=== PATIENT | male | born 1980 | race Caucasian/White ===

== ENCOUNTER 2018-05-09 12:06 | Outpatient (CLI) | payer BC, SELFPAY ==
[2018-05-09 13:43] LABS: Hemoglobin A1C 5.6 % (4.5-6.2)
[2018-05-09 13:59] LABS: Abs Immature Grans 0.01 k/cumm (0.0-0.09); Absolute Basophil Count 0.04 k/cumm (0.0-0.2); Absolute Eosinophil Count 0.27 k/cumm (0.0-0.7); Absolute Lymphocyte Count 1.62 k/cumm (1.2-3.4); Absolute Monocyte Count 0.36 k/cumm (0.11-0.7); Absolute Neutrophil Count 2.32 k/cumm (1.2-6.7); Basophils % 0.9; Eosinophils % 5.8; HGB 15.2 g/dL (13.5-17.5); Immature Grans % 0.2; Lymphocytes % 35.1; Mean Corp. HGB Concentration 35.3 g/dL (32.0-36.0); Mean Corpuscular Hemoglobin 31.5 pg (27.0-33.0); Mean Corpuscular Volume 89.2 fL (80-95); Mean Platelet Volume 10.2 fL (8.0-11.0); Monocytes % 7.8; Neutrophils % 50.2; Platelet Count 278 x1000/uL (130-400); RBC 4.82 m/cumm (4.50-6.00); White Blood Cell Count 4.62 k/cumm (4.4-10.8)
[2018-05-09 14:26] LABS: ALT 176 U/L (12-78); AST 88 U/L (15-37); Albumin 4.6 g/dL (3.4-5.0); Alkaline Phosphatase 79 U/L (46-116); Anion Gap 10.5 mmol/L (3-11); BUN 19 mg/dL (7-18); Bilirubin, Total 0.8 mg/dL (0.2-1.0); CO2 26.5 mmol/L (21.0-32.0); CREATININE 1.05 mg/dL (0.70-1.30); Calcium 9.3 mg/dL (8.5-10.1); Chloride 103 mmol/L (98-107); Glucose 98 mg/dL (70-100); Potassium 4.3 mmol/L (3.5-5.1); Sodium 140 mmol/L (136-145); TSH (W/Ref FT4) 1.05 uIU/mL (0.358-3.74); Total Protein 7.7 g/dL (6.4-8.2); Vitamin B12 576 pg/mL (193-986)
[2018-05-10 12:10] LABS: Albumin 66.3 % (55.8-66.1); Total Protein 7.5 g/dl (6.3-8.2)
== END 2018-05-09 12:26 ==
PROVIDERS: PCP Nurse Practitioner Family; Visit Provider Nurse Practitioner Family
DX: R20.2 Paresthesia of skin (principal); R20.0 Anesthesia of skin; G62.9 Polyneuropathy, unspecified
CPT/HCPCS: 36415; 80053; 82607; 83036; 84165; 84443; 85025

== ENCOUNTER 2019-07-11 00:35 | Day surgery (SDC) | payer BC, SELFPAY ==
--- NOTE | 2019-07-11 00:38 | ED.GENADUL_ITS ---
Discharge Plan Disposition Patient Disposition: OTHER Condition: Good Discharge Details Chief Complaint: Laceration Clinical Impression: Laceration of right hand, complicated Primary Care Provider: Dorys James ED Provider: Wayne Alcazar [place] Meds and New Rx's Prescriptions: No Action esomeprazole magnesium [Nexium] 20 MG capsule,delayed release(DR/EC) 20 mg PO DAILY RF: 0 clindamycin phosphate 1 % solution 1 applic Topical 1-2 times daily PRN (Reason: folliculitis) Qty: 60 RF: 3 Medical Decision Making Patient with laceration to the back of the index and long finger of the right hand. The extensor tendon of the index finger is clearly involved. He is right-hand dominant. He is also nauseated and pale. Likely vagal type reaction given his mild bradycardia. IV established and Zofran ordered. We will also dosed with Ancef. Needs TD booster. Will obtain x-ray. Will wash out and cover with wet-to-dry. Will discuss with orthopedics on timing of extensor tendon repair. 01:30 -x-ray shows an incomplete transverse fracture at the base of the proximal metaphysis of the index finger. Patient soaking the hand in Betadine/saline mixture. Will then wash out in wrap with wet-to-dry. Will make n.p.o. and obtain preop EKG. Start IV fluids and discussed with orthopedics. 03:15 - Patient was discussed with orthopedics, Dr. Florian. Patient will be held in the ED until morning at which point he will be taken to the OR for wash-out and repair. Plan discharge home after surgery. ECG Data Attestation: I personally reviewed and interpreted this ECG (s) as follows: Prior ECG tracings: not available for review Interpretation: Sinus rhythm at 75. Normal axis and intervals. Isolated Q in III. Normal ST segments. Normal EKG. HPI General Mode of arrival: ambulatory . Date/Time Provider Initiated Documentation: 07/11/19 00:38 . Limitations to Documentation: no limitations . Information obtained by: patient and RN notes reviewed . HPI Narrative: Patient presents to ED with right hand injury. Patient was doing some woodworking tonight. He is also had some vodka. He sustained a laceration from a band saw to the back of his right hand involving the index and middle finger. He is right-hand dominant. Bleeding is controlled. He has difficulty extending the index finger. He denies numbness. He has not been ill prior. There is been no fever, cough, shortness of breath. Related Data Home Medications Medication Instructions Recorded Confirmed esomeprazole magnesium [Nexium] 20 mg PO DAILY tab-cap 03/21/17 07/11/19 clindamycin phosphate 1 % topical 1 applic TOPICAL 1-2 times daily 01/22/19 07/11/19 solution PRN #60 ml Previous Rx's Medication Instructions Recorded clindamycin phosphate 1 % topical 1 applic TOPICAL 1-2 times daily 01/22/19 solution PRN #60 ml Allergies Allergy/AdvReac Type Severity Reaction Status Date / Time Penicillins Allergy Intermediate Hives Unverified 07/11/19 00:52 Review of Systems Narrative: As documented in HPI otherwise negative as below. Const: no fever, chills, weakness Resp: no cough, SOB, pleuritic pain CV: no CP, diaphoresis, edema, syncope GI: no abdominal pain, nausea, vomiting, diarrhea Neuro: no headache, numbness, focal weakness, confusion [facility] Medical History (Updated 07/11/19 @ 07:07 by Ed Florian MD) Acquired unequal limb length (Chronic 11/06/14) GERD (gastroesophageal reflux disease) (Chronic 10/01/14) Migraine without aura and without status migrainosus, not intractable (Chronic 05/11/17) Surgical History wisdom teeth extraction Social History Smoking/Tobacco Use Status: Former Tobacco Use Alcohol Intake: current Alcohol Intake frequency: 0-2 drinks per day Alcohol type: hard liquor Drug use: Never Substance use type: does not use Household members: spouse Number of Children: 2 current occupation: Teacher Current gender identity: male What type of physical activity do you participate in: regular exercise and other Details: skiing, snow shoeing Duration: > 90 minutes/day Frequency: 1-2 times per week Do you feel safe at home: Yes Do you feel safe in your relationship?: Yes Exam Narrative Exam Narrative: Vitals: Afebrile. Mildly elevated blood pressure. Otherwise normal vitals and normal room air pulse oximetry. Const: WDWN male in NAD. HEENT: NC/AT. Normal facial exam. Eyes: Normal conjunctiva and sclera. Neck: Supple. Trachea midline. Lungs: Normal respiratory effort. Neuro: A+O x 3. Normal speech, mentation, gait. Cranial nerves II - XII grossly intact. No gross motor or sensory deficit. Ext: Right index finger with deep laceration on the dorsal aspect just above the MCP joint. Finger in flexed position. Able to get to extension but extremely weak. Extensor tendon is visualized and is lacerated. Right long finger with laceration on the radial dorsal aspect. Able to fully extend and hold again re sistance. Cap refill and sensation intact distal. Skin: Lacerations as described above.
[2019-07-11 00:41] VITALS: BP 127/92; PULSE 59; RESP 16; TEMP 36.6; O2SAT 97
[2019-07-11] MEDS: Tetanus & Diphtheria Tox,ADULT 0.5 ML VIAL IM (00:59)
[2019-07-11] MEDS: Ondansetron 4 MG/2 ML VIAL IVP (01:00)
[2019-07-11] MEDS: ceFAZolin 1 GM/50 ML BAG IVPB (01:00)
--- NOTE | 2019-07-11 01:10 | DI.RAD_ITS ---
EXAM: XR HAND RT COMPLETE CLINICAL HISTORY: Trauma,saw injury TECHNIQUE: 2D digital imaging was performed. COMPARISON: No exams were available for comparison FINDINGS: BONES: Incomplete transverse fracture at the proximal metadiaphyseal junction of the proximal phalanx of the right index finger. The fracture does not appear to extend through the ulnar aspect of the c ortex of the bone. No bony destructive lesion is seen. JOINTS: No dislocation present. SOFT TISSUE: Soft tissue swelling of the index finger. No radiopaque foreign bodies are present. IMPRESSION: Incomplete transverse fracture through the proximal phalanx of the right index finger. No radiopaque foreign bodies are present. DATA REPOSITORY: RADIATION DOSE DELIVERED:
--- NOTE | 2019-07-11 01:25 | DI.VRAD_ITS ---
PROCEDURE INFORMATION: Exam: XR Right Hand Exam date and time: 07/11/2019 1:08 AM Age: 39 years old Clinical indication: Injury or trauma; Injury history: Band saw accident; Initial encounter; Laceration; Right; Index finger; Injury date: 07/11/19 TECHNIQUE: Imaging protocol: XR Right hand. Views: 3 or more views. COMPARISON: No relevant prior studies available. FINDINGS: Bones/joints: Incomplete transverse fracture at the basal metaphysis of the 2nd finger proximal phalanx. This is consistent with a band saw injury. No foreign body. Soft tissues: No soft tissue foreign body IMPRESSION: Incomplete transverse fracture at the base of the 2nd finger proximal phalanx consistent with a band saw cutting injury. This does not extend through the ulna side cortex. Dictated and Authenticated by: Myron Linn MD. Ordering:LEENA Black MD
--- NOTE | 2019-07-11 01:28 | NUR.NOTE ---
Nursing Note: Pt soaking hand in water and iodine. Tolerating well.
--- NOTE | 2019-07-11 01:55 | NUR.NOTE ---
Nursing Note: Lacerations rinsed with 50 ml of NS, wrapped with 4x4 gauze and secured with cling. Patienttolerated well.
[2019-07-11] MEDS: Lactated Ringers 1,000 ML 150 ML IV (02:05)
--- NOTE | 2019-07-11 02:38 | NUR.NOTE ---
Nursing Note: Pt laying in bed,room dark per pt request. Call light at side. IVF infusing. No c/o or requests at this time.
--- NOTE | 2019-07-11 03:42 | NUR.NOTE ---
Nursing Note: Pt laying in bed, eyes closed. Appears to be sleeping.
[2019-07-11 04:30] VITALS: BP 118/71; PULSE 77; RESP 16; O2SAT 96
[2019-07-11 07:58] VITALS: BP 110/76; PULSE 87; RESP 17; TEMP 36.7; O2SAT 97
[2019-07-11 08:44] VITALS: BP 110/76; PULSE 83; RESP 17; TEMP 36.7; O2SAT 97
--- NOTE | 2019-07-11 09:00 | OCONE_ITS ---
Date of service: 07/11/19 Time of Service: 09:00 History of Present Illness History of Present Illness Chief Complaint: Right hand lacerations Narrative: Chief Complaint: Right hand laceration HPI: 39-year-old male status post bandsaw versus right hand injury around midnight last night. Was trying to get a [employer] project going study could do it with his daughter today. Admits to significant alcohol intake and rushing contributing to injury. prior injury: No attempted treatments: Sterile dressing and antibiotics administered emergency room numbness/tingling: Denies prior imaging: X-rays done in emergency room PMH: Negative diabetes: Denies allergies: Penicillins cause hives FH: non-contributory SH: Significant regular alcohol intake for the past 20 years. Admits to it likely being too much and should be cutting back. 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 Consult Reason Right hand tendon laceration and fracture evaluation and management Assessment and Plan Assessment and plan (1) Laceration of right hand, complicated: Status: Acute Assessment and plan: 39-year-old male status post band saw injury overnight to the right hand with index finger proximal phalanx open fracture and visible complete extensor tendon laceration and long finger skin full-thickness laceration As previously done antibiotics and sterile dressing applied in the emergency department Elevation and neurovascular checks for the digit overnight Surgical management this morning as soon as OR available: Plan for examination and stress x-rays of the proximal phalanx fracture to determine whether or not it needs to be fixed with ORIF, irrigation and debridement of both wounds, extensor tendon repair, and evaluation and appropriate repair of long finger laceration The risks, benefits, and alternatives were thoroughly discussed. Patient was counseled regarding pain management, expected postoperative course, and recovery timeline. All questions were answered. Informed consent was obtained. Agree and understand treatment plan. Follow up approximately 10 days after surgery. Case discussed with emergency room physician and nurse journeyman pressman Qualifiers: Encounter type: initial encounter Qualified Code(s): S61.411A - Laceration without foreign body of right hand, initial encounter (2) Fracture of proximal phalanx of hand, open: Status: Acute Assessment and plan: as above Qualifiers: Encounter type: initial encounter Finger: index finger Fracture alignment: nondisplaced Laterality: right Qualified Code(s): S62.640B - Nondisplaced fracture of proximal phalanx of right index finger, initial encounter for open fracture Review of Systems Constitutional Constitutional: Denies chills and Denies fever(s) Eyes Eyes: Denies diplopia and Denies loss of vision ENT Ears, Nose, Mouth, and Throat: Denies dental pain and Denies other (cavities) Cardiovascular Cardiovascular: Denies chest pain with activity, Denies irregular heart rhythm and Denies dyspnea Respiratory Respiratory: Denies cough and Denies dyspnea Gastrointestinal Gastrointestinal: Denies nausea and Denies vomiting Musculoskeletal Musculoskeletal: Reports as per HPI Integumentary/Breasts Skin/Breast: Denies rash and Denies wounds Neurologic Neurologic: Reports as per HPI and Denies loss of vision Psychiatric Psychiatric: Reports anxiety and Denies depression Hematologic/Lymphatic Hematologic/Lymphatic: Denies easy bleeding and Denies easy bruising Allergic/Immunologic Allergic/Immunologic: Reports as per HPI COUNT INCLUDES THE [facility] Medical History Acquired unequal limb length (Chronic 11/06/14) GERD (gastroesophageal reflux disease) (Chronic 10/01/14) Migraine without aura and without status migrainosus, not intractable (Chronic 05/11/17) Surgical History wisdom teeth extraction Family History Mother Essential hypertension Father No problems noted. Sister No problems noted. Brother No problems noted. 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 What type of physical activity do you participate in: regular exercise and other Details: skiing, snow shoeing Duration: > 90 minutes/day Frequency: 1-2 times per week Do you feel safe at home: Yes Do you feel safe in your relationship?: Yes Exam Const General: cooperative, comfortable and no acute distress Orientation: alert, awake and not confused Limitations: mental status not altered and no language barrier HENMT Head: normocephalic and atraumatic Neck Neck: normal visual inspection and full ROM Resp Effort & Inspection: normal respiratory effort, able to speak in complete sentences, no audible wheezes and no grunting General: deferred Skin General skin exam: no rashes or lesions noted Neuro General: patient alert, patient awake and patient oriented x3 Cognition: normal cognition Speech: speech normal Extrem Other: Right hand: Dorsal index finger full-thickness laceration over the base of the proximal phalanx from the mid axial vermilion border radially to the webspace ulnarly. Obvious contamination of metal and wood particles with devitalized skin and subcutaneous tissue and tendon exposed. Brisk cap refill under nail plate. Sensation completely intact per patient radial and ulnar digital borders. Difficult to participate in tendon exam but able to demonstrate limited but intact flexion with some limited extension at the MP J but no extension of the PIPJ or DIPJ consistent with obviously visible full-thickness extensor tendon laceration down to bone. Visible bone fracture/laceration and bone fragments. No active bleeding. No purulence no drainage. Long finger with full-thickness skin laceration over the dorsal third of the digit localized over the base of the proximal phalanx with visible tendon exposed but no obvious tendon laceration. No other trauma or injury to the thumb ring or small fingers or remainder of hand 2+ radial pulse. Regular rate and rhythm. Psych Appearance: grossly normal Mental Status: mental status grossly normal Speech and Movement: speech and movement normal Affect: normal affect Attitude: cooperative Results Last Vital Signs Temp 97.9 F 07/11/19 00:41 Pulse 77 07/11/19 04:30 Resp 16 07/11/19 04:30 BP 118/71 07/11/19 04:30 Pulse Ox 96 07/11/19 04:30 Imaging Imaging Studies: Right hand x-rays report and images independently reviewed: Significant for index finger proximal phalanx base nearly complete approximately 90% fracture from the dorsal surface with no angulation or displacement
[2019-07-11] MEDS: Lactated Ringers 1,000 ML 80 ML IV (09:07)
[2019-07-11] MEDS: ceFAZolin 2 GM/50 ML BAG IVPB (09:08)
--- NOTE | 2019-07-11 09:55 | DI.RAD_ITS ---
EXAM: XR HAND RT LIMITED CLINICAL HISTORY: RIGHT HAND LACERATION TECHNIQUE: 2D and realtime digital imaging was performed. CONTRAST MATERIAL: Refer to procedure report. COMPARISON: No exams were available for comparison FINDINGS: Fluoroscopy was provided for Dr. Florian during the evaluation of an incomplete fracture of the proxim al phalanx of the index finger. Please refer to the procedure report for complete details. Fluoro time: 3.7 seconds IMPRESSION: RADIATION DOSE DELIVERED:
[2019-07-11] MEDS: Hydrogen Peroxide 3% 480 ML BTL (10:54)
[2019-07-11 11:39] VITALS: BP 132/102; PULSE 73; RESP 16; TEMP 36.8; O2SAT 98
--- NOTE | 2019-07-11 12:06 | PDOC.DSDIS_ITS ---
Discharge Plan Disposition Patient Disposition: HOME Condition: Good Discharge Details Chief Complaint: Laceration Clinical Impression: Laceration of right hand, complicated Reason For Visit: Right hand versus bandsaw Attending Provider: Ed Florian Primary Care Provider: Dorys James ED Provider: Wayne Alcazar Home Meds and New Rx's Prescriptions: New naproxen 250 mg tablet 250 - 500 mg PO BID PRN (Reason: Moderate pain or swelling) Qty: 60 RF: 0 tramadol 50 mg Tablet 50 mg PO Q8H PRN PRN (Reason: severe pain) Qty: 9 RF: 0 cephalexin 250 mg tablet 250 mg PO QID 5 Days Qty: 20 RF: 0 Continued esomeprazole magnesium [Nexium] 20 MG capsule,delayed release(DR/EC) 20 mg PO DAILY RF: 0 clindamycin phosphate 1 % solution 1 applic Topical 1-2 times daily PRN (Reason: folliculitis) Qty: 60 RF: 3 Discharge Instructions Additional Instructions: Surgery: Right hand index finger extensor tendon repair and index finger and long finger laceration repairs Activity: Nonweightbearing in splint at all times. Recommend elevation at the level of the heart to minimize swelling and discomfort. Minimize active extension of the index finger. May actively flex the index finger and extend it passively using your other hand. Should work on gentle range of motion every day to prevent stiffness. A physical therapy prescription will be provided separately in the office at follow-up if needed. Prescriptions: Keflex 250 mg take 1 tablet 4 times a day to decrease risk of infection Naproxen 250 mg take 1-2 every 12 hours with a meal as needed for moderate pain Tramadol 50 mg take 1 every 8 hours as needed for severe pain You may use [id number] Tylenol (acetaminophen) as needed for mild pain. These pain medications may be taken all at once or in different combinations as needed. Also, recommend Colace (docusate) as a stool softener as surgery and pain medicine cause constipation. Dressings: Leave splint and dressing in place until follow-up. Keep clean and dry at all times. Follow-up: Approximately [address] Florian. Please call the office Sunday to confirm an appointment. Please call the office during business hours with any questions or concerns. L et us know right away if you develop any redness, drainage, fevers, chest pain, or trouble breathing. Do not drink alcohol or drive for at least 24 hours after anesthesia. Stand Alone Forms: [facility] Post op Instructions, Armen Owens ([facility]) Referrals: Ed Florian MD [ [facility] STAFF PHYSICIAN] - Discharge Orders Discharge Orders: Discharge Order (Routine); Ordered 07/11/19 Ordered By: Ed Florian DS: Diagnosis Discharge Diagnosis (1) Laceration of right hand, complicated: Status: Acute (2) Fracture of proximal phalanx of hand, open: Status: Acute
--- NOTE | 2019-07-11 12:23 | ROE_ITS ---
Date of service: 07/11/19 Time of Service: 12:23 Operative Note Operative Note DATE OF PROCEDURE: 07/11/19 PRE-OP DIAGNOSIS: 1. Right index finger proximal phalanx base open nondisplaced fracture 2. Complex laceration right dorsal index finger 3. Complex laceration right dorsal long finger 4. Complete extensor tendon laceration right index finger POST-OP DIAGNOSIS: same PROCEDURE: 1. Irrigation and debridement skin, subcutaneous tissue, tendon, and bone right index finger wound 2. Stress radiographic exam right index finger proximal phalanx fracture showing stable fracture pattern to flexion/extension and radial/ulnar stress 3. Irrigation and debridement skin, and subcutaneous tissue right long finger wound 4. Repair right index finger extensor tendon 5. Repair right index finger laceration 6. Repair right long finger laceration 7. Closed treatment right hand index finger proximal phalanx fracture SURGEON: Ed Florian SALES AND EVENTS COORDINATOR: None None ANESTHESIA: MAC, local and other (Cathy block) ESTIMATED BLOOD LOSS: 5 PATHOLOGY: none sent COMPLICATIONS: None Patient was transported to: PACU Patient's condition: stable Implants: None Indications: Please see complete medical record for details. Findings: Contaminated wound containing devitalized skin and subcutaneous tissue, tendon, and bone fragments as well as gross contamination from wood and possibly bandsaw. Full-thickness laceration right index finger through skin, subcutaneous tissue, extensor tendon and into bone with complete extensor tendon laceration and 90% proximal phalanx base fracture that was stable on stress exam. No visible radial ulnar digital arteries or nerves. Full-thickness skin and subcutaneous tissue laceration dorsal long finger with intact extensor tendon. Procedure Description: The patient was taken to the operating room and transferred to the operating room table. Preoperative antibiotics were administered. Windthorst block and local anesthesia with 0.25% bupivacaine containing epinephrine was induced. All bony prominences were well-padded. The right hand was prepped and draped in the usual sterile fashion. The correct patient, procedure, and side of the procedure were all verified prior to incision. The dorsal index and long finger wounds were approached and grossly irrigated and bluntly removed of contaminated tissue and devitalized tissue. Forceps were used to remove devitalized and contaminated pieces of bone, wood, subcutaneous tissue, and skin on the index finger and skin and subcutaneous tissue and wood on the long finger. The wounds were copiously irrigated with a liter of normal saline and found to be clean of gross debris. Hemostasis was achieved using Bovie cautery. Fluoroscopic C arm images were obtained in neutral AP and lateral positions confirming nearly complete 90% proximal phalanx base index finger fracture with nondisplaced alignment. The fracture was stressed both the radial and ulnar direction as well as the flexion and extension directions and found to be completely stable on fluoroscopic manual stress exam. The decision was made to omit any fracture fixation. The extensor tendon proximal distal edges were cleaned to viable tissue and released from surrounding tissue to allow for appropriate repair. A modified Christiano-Yohannes technique was performed under minimal tension with the finger held in neutral position. 6 core strands of 3-0 FiberWire were used and supplemented with 2 additional core strands of 4-0 Ethibond. There was good apposition at the tendon site and the patient was able to demonstrate active flexion extension without gapping. The wound was copiously irrigated with normal saline. The index finger and long finger dorsal wounds were closed in layered fashion using 3-0 Monocryl in a buried interrupted fashion the subcutaneous tissue and 4-0 nylon in a horizontal mattress fashion for the skin. Windthorst block tourniquet was let down. Pressure was maintained over the wounds and incisions and hemostasis was achieved. The wounds were covered with Xeroform dry 4 x 4 gauze and in between the fingers and sterile soft roll. A resting volar splint was applied with the wrist in extension and metacarpophalangeal joints and 90% flexion for an appropriate intrinsic positive position to immobilize the proximal phalanx fracture as well as reduce tension on the extensor tendon repair. The patient awoke from anesthesia without complication. Patient was instructed on both active and passive range of motion restrictions and precautions and daily home exercises prevent stiffness. Transferred to recovery room in stable condition.
== END 2019-07-11 23:59 | disposition home or self-care (01) ==
LOC: ER 07:45 → DSU 12:08 → ER 13:36
PROVIDERS: Emergency Provider Emergency Medicine; PCP Nurse Practitioner Family; Visit Provider Student in an Organized Health Care Education/Training Program
PROC: 0LQ70ZZ Repair Right Hand Tendon, Open Approach (ICD-10-PCS; CPT 11012; principal; 2019-07-11 09:00)
DX: S61.210A Laceration without foreign body of right index finger without damage to nail, initial encounter (principal); S62.640B Nondisplaced fracture of proximal phalanx of right index finger, initial encounter for open fracture; S61.212A Laceration without foreign body of right middle finger without damage to nail, initial encounter; S56.421A Laceration of extensor muscle, fascia and tendon of right index finger at forearm level, initial encounter; W31.2XXA Contact with powered woodworking and forming machines, initial encounter
CPT/HCPCS: 11012; 11042; 26418; 12041; 26725; 36415; 90471; 93005; 96361; 96365; 96375; 99254; 99285; 73120; 73130; 93010; 99284; J0690; J1100; J1885; J2250; J2405

== ENCOUNTER 2019-07-22 10:29 | Outpatient (CLI) | payer BC, SELFPAY ==
--- NOTE | 2019-07-22 10:00 | DI.RAD_ITS ---
EXAM: XR FINGER RT INDEX CLINICAL HISTORY: F/U INJURY TECHNIQUE: COMPARISON: XR HAND RT COMPLETE from 07/11/2019 FINDINGS: Two views were obtained and show previously described transverse fracture of the base of the proximal phalanx of the index finger, no change in alignment comparison with examination of July 10. IMPRESSION:
== END 2019-07-22 10:49 ==
PROVIDERS: PCP Nurse Practitioner Family; Visit Provider Student in an Organized Health Care Education/Training Program
DX: S62.640D Nondisplaced fracture of proximal phalanx of right index finger, subsequent encounter for fracture with routine healing (principal)
CPT/HCPCS: 73140

== ENCOUNTER 2019-08-26 09:20 | Outpatient (CLI) | payer BC, SELFPAY ==
--- NOTE | 2019-08-26 09:02 | DI.RAD_ITS ---
EXAM: XR FINGER RT INDEX CLINICAL HISTORY: fu finger TECHNIQUE: COMPARISON: No exams were available for comparison FINDINGS: Two views were obtained and show previously described nondisplaced fracture of the proximal metaphyse al diaphyseal junction of the proximal phalanx of the index finger. No interval change in alignment in comparison with examination of July 21. IMPRESSION:
== END 2019-08-26 09:40 ==
PROVIDERS: PCP Nurse Practitioner Family; Visit Provider Student in an Organized Health Care Education/Training Program
DX: S62.640D Nondisplaced fracture of proximal phalanx of right index finger, subsequent encounter for fracture with routine healing (principal)
CPT/HCPCS: 73140

== ENCOUNTER 2019-09-03 14:19 | Outpatient (CLI) | payer OTHER, SELFPAY ==
--- NOTE | 2019-09-03 08:45 | DI.RAD_ITS ---
EXAM: XR SHOULDER RT COMPLETE 2+V CLINICAL HISTORY: SHOULDER PAIN. TECHNIQUE: 2D digital imaging was performed. COMPARISON: CR RIGHT SHOULDER COMPLETE from 04/21/2015 FINDINGS: BONES: No acute fracture is present. No bony destructive lesion is seen. JOINTS: There is elevation of the distal clavicle relative to the acromion. The patient has a histor y of a prior AC joint separation. Dystrophic ossifications are seen around the distal clavicle which appear chronic. The glenohumeral joint is well maintained. SOFT TISSUE: Normal. IMPRESSION: Disruption of the normal right acromioclavicular joint which may be chronic. An acute ACL tear canno t be excluded. Chronic appearing ossification around the acromioclavicular joint. MRI might be considered in this patient for further evaluation. DATA REPOSITORY: RADIATION DOSE DELIVERED:
== END 2019-09-03 14:39 ==
PROVIDERS: PCP Nurse Practitioner Family; Referring Provider Nurse Practitioner Family; Visit Provider Student in an Organized Health Care Education/Training Program
DX: M25.511 Pain in right shoulder (principal); M61.411 Other calcification of muscle, right shoulder; S43.101A Unspecified dislocation of right acromioclavicular joint, initial encounter
CPT/HCPCS: 73030

== ENCOUNTER 2019-09-18 02:40 | Outpatient (CLI) | payer OTHER, BC, SELFPAY ==
--- NOTE | 2019-09-18 10:50 | DI.MRI_ITS ---
EXAM: MR UPPER JOINT RT WO CLINICAL HISTORY: Chronic shoulder separation. Assess CC ligaments,s42.031a,s43.101A,CLOSED. TECHNIQUE: Multiplanar multisequence MRI was performed. COMPARISON: CR XR SHOULDER RT COMPLETE 2+V from 09/03/2019 FINDINGS: MR examination shoulder was performed according to usual protocol. Bones: There is superior displacement of the distal aspect of the clavicle consistent with acromiocla vicular separation, fibro osseous bridges are noted between the clavicle coracoid as noted films. Th ere is no supraspinatus impingement. Articular cartilage and labrum:: There appears to be thinning the articular cartilage humeral and gle noid components of the glenohumeral joint. No gross labral tear identified by noncontrast criteria. Biceps tendon: The biceps tendon and anchor appear intact. The tendon is normally positioned in the bicipital groove. Minimal signal abnormality noted in the proximal to mid biceps tendon consistent w ith mild tendinosis. Rotator cuff: Mildly abnormal Laura attachment signal supraspinatus and subscapularis tendons, no sign ificant partial or full thickness tear identified. Mildly abnormal signal in rotator interval. No d iscrete tear seen. Unremarkable appearance infraspinatus and teres minor muscle and tendons. IMPRESSION: Degenerative articular cartilage thinning of the glenohumeral joint. 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 Mild supraspinatus and subscapularis tendinosis, no focal tear seen. DATA REPOSITORY:
== END 2019-09-18 03:00 ==
PROVIDERS: PCP Nurse Practitioner Family; Visit Provider Student in an Organized Health Care Education/Training Program
DX: M24.411 Recurrent dislocation, right shoulder (principal); M75.81 Other shoulder lesions, right shoulder; M19.011 Primary osteoarthritis, right shoulder
CPT/HCPCS: 73221

== ENCOUNTER 2019-10-15 08:39 | Outpatient (CLI) | payer BC, SELFPAY ==
--- NOTE | 2019-10-15 14:45 | DI.RAD_ITS ---
EXAM: XR FINGER RT INDEX CLINICAL HISTORY: right index finger injury. TECHNIQUE: 2D digital imaging was performed. COMPARISON: CR XR FINGER RT INDEX from 08/26/2019 FINDINGS: BONES: There is no change in alignment of the nondisplaced fracture involving the proximal phalanx of the right index finger. The fracture appears to be healing. No bony destructive lesion is seen. JOINTS: No dislocation present. SOFT TISSUE: Normal. IMPRESSION: Healing fracture of the proximal phalanx of the right index finger. DATA REPOSITORY: RADIATION DOSE DELIVERED:
== END 2019-10-15 08:59 ==
PROVIDERS: PCP Nurse Practitioner Family; Visit Provider Student in an Organized Health Care Education/Training Program
DX: S62.640D Nondisplaced fracture of proximal phalanx of right index finger, subsequent encounter for fracture with routine healing (principal)
CPT/HCPCS: 73140

== ENCOUNTER 2020-02-04 15:46 | Outpatient (CLI) | payer BC, SELFPAY ==
--- NOTE | 2020-02-04 15:15 | DI.RAD_ITS ---
EXAM: XR FINGER RT INDEX INDICATION: Follow up. COMPARISON: CR XR FINGER RT INDEX from 10/15/2019 TECHNIQUE: 2D digital imaging was performed. FINDINGS: There has been continued healing at the nondisplaced fracture of the proximal phalanx of the index fi nger. No new abnormalities are seen. DATA REPOSITORY: RADIATION DOSE DELIVERED:
== END 2020-02-04 16:06 ==
PROVIDERS: PCP Nurse Practitioner Family; Referring Provider Nurse Practitioner Family; Visit Provider Student in an Organized Health Care Education/Training Program
DX: S62.640D Nondisplaced fracture of proximal phalanx of right index finger, subsequent encounter for fracture with routine healing (principal)
CPT/HCPCS: 73140

== ENCOUNTER 2021-02-08 09:20 | Outpatient (CLI) | payer BC, SELFPAY ==
--- NOTE | 2021-02-08 09:15 | RT.EKG_ITS ---
APPROVED REPORT Exam: Resting ECG Reason for Exam: chest tightness Patient Location: O HR:81 bpm ECG Measurements Heart Rate 81 AXIS DE 149 P 35 QRSd 98 QRS 88 QT 356 T 19 QTc 413 Conclusion Sinus rhythm...normal P axis, V-rate 60- 99 Normal Electrocardiogram
== END 2021-02-08 09:21 | disposition home or self-care (01) ==
LOC: DI.KIM 09:21
PROVIDERS: PCP Nurse Practitioner Family; Visit Provider Family Medicine
DX: R07.89 Other chest pain (principal)
CPT/HCPCS: 93010

== ENCOUNTER 2021-02-08 13:52 | Outpatient (RCR) | payer BC, SELFPAY ==
--- NOTE | 2021-02-08 17:00 | HOLTER_ITS ---
APPROVED REPORT Conclusion This is a 48-hour Holter monitor reportedly ordered for chest tightness Rhythm throughout was sinus with an average heart rate of 78. Minimum was 57, maximum of 112 There were no ventricular dysrhythmias A total of 3 isolated atrial premature beats were seen There was no atrial fibrillation, no high-grade AV block, no pauses greater than 3 seconds Multiple patient symptoms were reported all corresponding to sinus rhythm in the 70s
== END 2021-02-13 23:59 | disposition home or self-care (01) ==
LOC: RT 13:52
PROVIDERS: PCP Nurse Practitioner Family; Visit Provider Family Medicine
DX: F10.10 Alcohol abuse, uncomplicated (principal); R00.2 Palpitations; R07.89 Other chest pain
CPT/HCPCS: 93225; 93226

== ENCOUNTER → 2021-02-08 18:29 | Outpatient (CLI) | payer BC, SELFPAY ==
--- NOTE | 2021-02-08 10:15 | DI.RAD_ITS ---
Exam(s) XR CHEST 2V PA LATERAL EXAM: XR CHEST 2V PA LATERAL CLINICAL HISTORY: Chest tightness R07.89 CHEST PAIN TECHNIQUE: 2D digital imaging was performed. COMPARISON: CR RIGHT SHOULDER COMPLETE from 04/21/2015 FINDINGS: MEDIASTINUM: Normal. HEART: Normal. PULMONARY VASCULATURE: Normal. LUNGS: Clear. PLEURAL SPACE: No pleural effusion or pneumothorax. BONE:Calcifications beneath right clavicle likely related to prior AC separation. IMPRESSION: No acute abnormality. DATA REPOSITORY: RADIATION DOSE DELIVERED:
== END ==
PROVIDERS: PCP Nurse Practitioner Family; Visit Provider Family Medicine
DX: R07.89 Other chest pain (principal)
CPT/HCPCS: 71046

== ENCOUNTER 2021-02-11 03:32 | Outpatient (CLI) | payer BC, SELFPAY ==
[2021-02-11 09:12] LABS: Hemoglobin A1C 5.1 % (<5.7)
[2021-02-11 09:46] LABS: ALT 83 U/L (16-63); AST 46 U/L (15-37); Albumin 4.6 g/dL (3.4-5.0); Alkaline Phosphatase 82 U/L (46-116); Anion Gap 7.7 mmol/L (3-11); BUN 22 mg/dL (7-18); CO2 29.3 mmol/L (21.0-32.0); CREATININE 1.1 mg/dL (0.70-1.30); Calcium 9.3 mg/dL (8.5-10.1); Calculated LDL 143 mg/dL (<100); Chloride 104 mmol/L (98-107); Cholesterol 222 mg/dL (<200); Glucose 102 mg/dL (74-106); HDL Cholesterol 54 mg/dL (40-60); Potassium 4.7 mmol/L (3.5-5.1); Sodium 141 mmol/L (136-145); TSH (W/Ref FT4) 0.78 uIU/mL (0.36-3.74); Total Protein 7.6 g/dL (6.4-8.2); Triglyceride 127 mg/dL (<150)
[2021-02-14 11:32] LABS: Hepatitis C Ab w Rflx HCV PCR Negative (Negative)
[2021-02-14 11:52] LABS: HIV-1/2 Ag & Ab Screen Negative (Negative)
== END 2021-02-11 03:33 | disposition home or self-care (01) ==
LOC: LBO 03:32
PROVIDERS: PCP Nurse Practitioner Family; Visit Provider Nurse Practitioner Family
DX: Z13.220 Encounter for screening for lipoid disorders; R00.2 Palpitations; Z13.1 Encounter for screening for diabetes mellitus; Z11.4 Encounter for screening for human immunodeficiency virus [HIV]; Z11.59 Encounter for screening for other viral diseases
CPT/HCPCS: 36415; 80053; 80061; 86803; 87389; 83036; 84443

== ENCOUNTER 2021-06-15 01:55 | Outpatient (CLI) | payer BC, SELFPAY ==
[2021-06-15 17:23] LABS: Abs Immature Grans 0.02 10^3/uL (0.0-0.06); Absolute Basophil Count 0.04 10^3/uL (0.0-0.2); Absolute Eosinophil Count 0.25 10^3/uL (0.0-0.7); Absolute Lymphocyte Count 1.67 10^3/uL (1.2-3.4); Absolute Monocyte Count 0.34 10^3/uL (0.1-0.8); Absolute Neutrophil Count 2.62 10^3/uL (1.2-6.7); Basophils % 0.8; Eosinophils % 5.1; HCT 44.6 % (40.0-50.0); HGB 15.4 g/dL (13.5-17.5); Immature Grans % 0.4; Lymphocytes % 33.8; MCHC 34.5 % (32.0-36.0); MCV 89.7 fL (80-95); MPV 9.8 fL (8.0-11.0); Monocytes % 6.9; Nucleated RBC 0 %; Platelet Count 275 10^3/uL (130-400); RBC 4.97 10^6/uL (4.36-5.78); RDW 11.5 % (11.8-14.1); RDW-SD 37.8 fL; WBC 4.94 10^3/uL (4.4-10.8)
[2021-06-15 18:38] LABS: Iron 137 ug/dL (65-175); Total Iron Binding Capacity 345 ug/dL (250-450); Transferrin Sat 40 % (20-55)
[2021-06-15 19:33] LABS: ALT 70 U/L (16-63); AST 41 U/L (15-37); Albumin 4.7 g/dL (3.4-5.0); Alkaline Phosphatase 93 U/L (46-116); Bilirubin, Total 0.7 mg/dL (0.2-1.0); Ferritin 244 ng/mL (26-388); Total Protein 7.8 g/dL (6.4-8.2)
[2021-06-15 19:43] LABS: Bilirubin, Direct 0.2 mg/dL (0.0-0.2)
[2021-06-17 09:17] LABS: Hepatitis B Surface Ag Negative (Negative)
[2021-06-17 09:33] LABS: HBs Antibody, Quant <3.1 mIU/mL (See Note); Hepatitis B Surface Ab Negative (See Note)
[2021-06-17 09:57] LABS: Hepatitis C Ab w Rflx HCV PCR Negative (Negative)
[2021-06-17 10:41] LABS: Hep B Core Antibody Negative (Negative)
[2021-06-17 10:45] LABS: Hep A Total Ab w Rflx IgM Negative (Negative)
== END 2021-06-15 01:56 | disposition home or self-care (01) ==
LOC: LBO 01:55
PROVIDERS: PCP Nurse Practitioner Family; Visit Provider Nurse Practitioner Family
DX: R79.89 Other specified abnormal findings of blood chemistry (principal); Z11.59 Encounter for screening for other viral diseases; K76.0 Fatty (change of) liver, not elsewhere classified
CPT/HCPCS: 36415; 80076; 86704; 86706; 86709; 86803; 87340; 82728; 83540; 83550; 85025

== ENCOUNTER 2022-01-06 00:58 | Outpatient (CLI) | payer BC, SELFPAY ==
[2022-01-06 07:23] LABS: Abs Immature Grans 0.02 10^3/uL (0.0-0.06); Absolute Basophil Count 0.06 10^3/uL (0.0-0.2); Absolute Monocyte Count 0.45 10^3/uL (0.1-0.8); Basophils % 1.2; Eosinophils % 8.1; HCT 44.8 % (40.0-50.0); HGB 15.5 g/dL (13.5-17.5); Immature Grans % 0.4; Lymphocytes % 40.6; MCH 31.2 pg (27.0-33.0); MCHC 34.6 % (32.0-36.0); MCV 90 fL (80-95); MPV 9.6 fL (8.0-11.0); Monocytes % 9.1; Neutrophils % 40.6; Platelet Count 256 10^3/uL (130-400); RBC 4.97 10^6/uL (4.36-5.78); RDW 11.3 % (11.8-14.1); RDW-SD 37.4 fL; WBC 4.93 10^3/uL (4.4-10.8)
[2022-01-06 08:30] LABS: ALT 65 U/L (16-63); AST 36 U/L (15-37); Albumin 4.4 g/dL (3.4-5.0); Alkaline Phosphatase 83 U/L (46-116); Anion Gap 7.5 mmol/L (3-11); BUN 18 mg/dL (7-18); Bilirubin, Total 0.5 mg/dL (0.2-1.0); CO2 28.5 mmol/L (21.0-32.0); CREATININE 1.2 mg/dL (0.70-1.30); Calcium 8.9 mg/dL (8.5-10.1); Calculated LDL 107 mg/dL (<100); Chloride 106 mmol/L (98-107); Cholesterol 171 mg/dL (<200); Glucose 102 mg/dL (74-106); HDL Cholesterol 46 mg/dL (40-60); Potassium 4.1 mmol/L (3.5-5.1); Sodium 142 mmol/L (136-145); Total Protein 7.7 g/dL (6.4-8.2); Triglyceride 94 mg/dL (<150)
== END 2022-01-06 00:59 | disposition home or self-care (01) ==
LOC: LBO 00:58
PROVIDERS: PCP Nurse Practitioner Family; Visit Provider Nurse Practitioner Family
DX: E78.5 Hyperlipidemia, unspecified (principal); K76.0 Fatty (change of) liver, not elsewhere classified; Z13.1 Encounter for screening for diabetes mellitus
CPT/HCPCS: 36415; 80053; 80061; 85025

== ENCOUNTER 2022-12-28 02:20 | Outpatient (CLI) | payer BC, SELFPAY ==
[2022-12-28 10:30] LABS: Abs Immature Grans 0.01 10^3/uL (0.0-0.06); Absolute Basophil Count 0.05 10^3/uL (0.0-0.2); Absolute Lymphocyte Count 1.72 10^3/uL (1.2-3.4); Absolute Monocyte Count 0.42 10^3/uL (0.1-0.8); Absolute Neutrophil Count 2.33 10^3/uL (1.2-6.7); Eosinophils % 8.1; HCT 44.5 % (40.0-50.0); HGB 15.6 g/dL (13.5-17.5); Immature Grans % 0.2; Lymphocytes % 34.9; MCH 30.8 pg (27.0-33.0); MCHC 35.1 % (32.0-36.0); MCV 88 fL (80-95); MPV 10.1 fL (8.0-11.0); Monocytes % 8.5; Neutrophils % 47.3; Platelet Count 283 10^3/uL (130-400); RBC 5.07 10^6/uL (4.36-5.78); WBC 4.93 10^3/uL (4.4-10.8)
[2022-12-28 10:58] LABS: ALT 61 U/L (16-63); AST 40 U/L (15-37); Albumin 4.5 g/dL (3.4-5.0); Alkaline Phosphatase 78 U/L (46-116); Anion Gap 6.1 mmol/L (3-11); BUN 19 mg/dL (7-18); Bilirubin, Total 0.8 mg/dL (0.2-1.0); CO2 28.9 mmol/L (21.0-32.0); CREATININE 1.2 mg/dL (0.70-1.30); Calcium 9.2 mg/dL (8.5-10.1); Chloride 105 mmol/L (98-107); Estimated GFR 77.92 (mL/min/1.73m2); Glucose 102 mg/dL (74-106); Potassium 4.3 mmol/L (3.5-5.1); Sodium 140 mmol/L (136-145); Total Protein 7.5 g/dL (6.4-8.2)
== END 2022-12-28 02:21 | disposition home or self-care (01) ==
LOC: LBO 02:20
PROVIDERS: PCP Nurse Practitioner Family; Referring Provider Nurse Practitioner Family; Visit Provider Nurse Practitioner Family
DX: K76.0 Fatty (change of) liver, not elsewhere classified (principal); E78.5 Hyperlipidemia, unspecified; F10.10 Alcohol abuse, uncomplicated
CPT/HCPCS: 36415; 80053; 85025

== ENCOUNTER 2024-02-21 15:13 | Outpatient (CLI) | payer BC, SELFPAY ==
--- NOTE | 2024-02-21 08:45 | DI.RAD_ITS ---
Exam(s) XR HIP RT COMPLETE AP PELVIS EXAM: XR HIP RT COMPLETE AP PELVIS CLINICAL HISTORY: R hip pain. TECHNIQUE: 2D digital imaging was performed of the right hip. Two images were obtained. AP pelvis a nd lateral right hip views were obtained. COMPARISON: No exams were available for comparison FINDINGS: BONES: No acute fracture is present. No bony destructive lesion is seen. JOINTS: No dislocation present. The right hip is fairly well maintained. There may be mild narrowing of the superior joint space. SOFT TISSUE: Normal. IMPRESSION: No acute abnormality. DATA REPOSITORY: RADIATION DOSE DELIVERED:
== END 2024-02-21 15:14 | disposition home or self-care (01) ==
LOC: DIORS 15:13
PROVIDERS: PCP Nurse Practitioner Adult Health; Visit Provider Physician Assistant
DX: M25.551 Pain in right hip (principal)
CPT/HCPCS: 73502

== ENCOUNTER 2024-03-18 01:08 | Outpatient (CLI) | payer BC, SELFPAY ==
--- NOTE | 2024-03-18 08:00 | DI.MRI_ITS ---
Exam(s) MR LOWER JOINT RT WO EXAM: MR LOWER JOINT RT WO CLINICAL HISTORY: PAIN,femoral acetabular impingement,m25.859 TECHNIQUE: Multiplanar multisequence MRI was performed without intravenous contrast. COMPARISON: CR XR HIP RT COMPLETE AP PELVIS from 02/21/2024 FINDINGS: BONES/JOINTS: No fracture or contusion pattern. Mild hyperintense signal is seen on the sacral side o f the sacroiliac joints bilaterally. The sacroiliac joints are otherwise unremarkable. No findings to suggest insufficiency fracture. There is mild hyperintense signal seen in the roof of the right a cetabulum. Marrow signal is otherwise within normal limits. No evidence of avascular necrosis. The re is mild prominence of the right acetabulum. MUSCULOTENDINOUS STRUCTURES: The muscles show normal signal and size. There is mild increased signal seen in the right gluteus medius tendon at its insertion site onto the greater trochanter. SOFT TISSUES: Unremarkable. OTHER FINDINGS: None. IMPRESSION: 1. Mild prominence of the right acetabulum. 2. Mild increased signal seen within the right gluteus medius tendon suspicious for tendinosis/partia l tear. No evidence of a full-thickness tear seen. 3. Mild increased marrow signal seen on the sacral side of the sacroiliac joints. The abnormal signa l does not extend into the sacroiliac joints are along the iliac portion. Sacroiliitis is considered less likely. No findings to suggest insufficiency fracture. DATA REPOSITORY:
== END 2024-03-18 01:28 ==
LOC: DI 01:08
PROVIDERS: PCP Nurse Practitioner Adult Health; Visit Provider Student in an Organized Health Care Education/Training Program
DX: M25.851 Other specified joint disorders, right hip (principal)
CPT/HCPCS: 73721

== ENCOUNTER 2024-04-27 17:15 | Emergency (ER) | payer BC, SELFPAY ==
[2024-04-27 17:19] VITALS: BP 127/60; PULSE 88; RESP 20; TEMP 37; O2SAT 98
--- NOTE | 2024-04-27 17:35 | W.ED.GENAD ---
Discharge Plan Disposition Patient Disposition: Home Discharge Details Clinical Impression: Pain of right knee after injury Primary Care Provider: Kimberly Gaffney ED Provider: Johana Elias Home Meds and New Rx's Prescriptions: No Action tirzepatide 2.5 mg/0.5 mL pen injector 2.5 mg subcut QWEEK MDD 2.5 mg 28 Days Qty: 2 12RF Rx Instructions: Inject 2.5 mg subcutaneously once weekly as directed. sumatriptan succinate 50 mg tablet 50 mg PO ONCE MDD 200 PRN (Reason: migraine headache) Qty: 14 0RF Rx Instructions: Take 50 mg. If no response in 2 hrs, take 2nd 50 mg dose. Do not exceed 200 mg/day or 4 days/month clindamycin phosphate 1 % solution 1 applic Topical 1-2 times daily PRN (Reason: folliculitis) Qty: 60 12RF esomeprazole magnesium [Nexium] 20 MG capsule,delayed release(DR/EC) 20 mg PO DAILY fluticasone propionate [Flonase Allergy Relief] 50 mcg/actuation spray,suspension 1 spray intranasal BID PRN (Reason: allergy symptoms) Rx Instructions: administer into each nostril cetirizine [Zyrtec] 10 mg tablet 10 mg PO DAILY Discharge Instructions Instructions: Knee Pain ED Additional Instructions: Please follow-up with orthopedics within the next week or two for reassessment and management of your knee pain. There was no sign of fracture on x-ray, this is most likely soft tissue/ligamentous injury. Use the knee brace as needed for discomfort/stability. Advance weightbearing as tolerated, using crutches as needed. Elevate knee above heart level and apply ice for 10 to 15 minutes at a time every couple hours. You may use ibuprofen 600 mg every 8 hours as needed for discomfort. I recommend abstaining from alcohol while you are taking Tylenol and ibuprofen Return to emergency care if you develop new numbness to your leg, fevers associated knee pain, or if you are very worried and need to be rechecked in Referrals: [facility] [Provider Group] HPI General Date/Time Provider Initiated Documentation: 04/27/24 17:24. HPI Narrative: Prabhjot is a 44year old male who presents to the emergency department today for evaluation of right knee pain. He reports that he was skiing and caught some power today, causing him to twist his skin. He felt a crack and was unable to weight-bear due to instability in the knee. He is currently walking using a walking stick, is unable to bear weight. Denies swelling, point tenderness, distal numbness/tingling, other injuries. No previous injury to this knee.. Past medical history is significant for GERD, EtOH use, HLD, migraine. Physical exam reassuring. No obvious swelling, skin tears, ecchymosis, lacerations, or deformity to R knee. No point tenderness to palpation. Pain is elicited with weightbearing and anterior drawer test, no obvious joint laxity noted. No distal numbness/tingling, distal pulses intact, no extremity pallor. D/dx includes but is not limited to: Ligamentous injury, meniscal tear, sprain, fracture I independently interpreted the following tests: Right knee x-ray unremarkable other than joint effusion, this was confirmed by radiologist. While in the emergency department, Prabhjot received a brace and crutches for comfort. Reviewed discharge instructions with patient, including symptomatic management, orthopedic follow-up, and red flags indicating need for return to emergency care Related Data Home Medications ?Medication ?Instructions ?Recorded ?Confirmed esomeprazole magnesium 20 mg 20 mg PO DAILY 03/21/17 04/27/24 capsule,delayed release (Nexium) fluticasone propionate 50 1 spray intranasal BID PRN allergy 01/07/20 04/27/24 mcg/actuation nasal symptoms spray,suspension (Flonase Allergy Relief) cetirizine 10 mg tablet (Zyrtec) 10 mg PO DAILY 01/08/20 04/27/24 clindamycin phosphate 1 % topical 1 applic topical 1-2 times daily 02/25/24 04/27/24 solution PRN folliculitis #60 mL sumatriptan succinate 50 mg tablet 50 mg PO ONCE PRN migraine 03/31/24 04/27/24 headache #14 tab-caps tirzepatide 2.5 mg/0.5 mL 2.5 mg (0.5 mL) subcut QWEEK 28 03/31/24 04/27/24 subcutaneous pen injector days #2 mL Previous Rx's ?Medication ?Instructions ?Recorded clindamycin phosphate 1 % topical 1 applic topical 1-2 times daily 02/25/24 solution PRN folliculitis #60 mL sumatriptan succinate 50 mg tablet 50 mg PO ONCE PRN migraine 03/31/24 headache #14 tab-caps tirzepatide 2.5 mg/0.5 mL 2.5 mg (0.5 mL) subcut QWEEK 28 03/31/24 subcutaneous pen injector days #2 mL Allergies Allergy/AdvReac Type Severity Reaction Status Date / Time Penicillins Allergy Intermediate Hives Verified 04/27/24 17:21 General Stated Complaint: Orthopedic MEHNAZ: 4 Review of Systems Narrative: See HPI Exam Const General: cooperative, healthy appearing, comfortable, no acute distress, well developed and well groomed Nutritional Appearance: well nourished Orientation: alert and oriented x3 Resp Effort & Inspection: normal respiratory effort and able to speak in complete sentences Skin General skin exam: no rashes or lesions noted Trauma: no lacerations or abrasions Neuro General: patient alert, patient oriented x3, tone normal, moves all extremities and no focal motor deficits Motor: muscle tone normal throughout and strength 5/5 throughout Sensory Exam: no sensory deficits noted Extrem Right lower extremity: normal to inspection, full ROM, normal capillary refill and knee Details: normal to inspection, normal ROM and knee ligament exam normal (Pain elicited with anterior and posterior drawer test, no obvious laxity); no tenderness, no swelling, no abrasions, no ecchymosis, no crepitus, no penetrating wound, no deformity and no unusual warmth; no edema Course Vital Signs Vital signs: Vital Signs Temperature 37.0 C 04/27/24 17:19 Pulse 88 04/27/24 17:19 Respiratory Rate 20 04/27/24 17:19 Blood Pressure 127/60 04/27/24 17:19 Pulse Oximetry 98 04/27/24 17:19 Temperature 37.0 C 04/27/24 17:19 Pulse 88 04/27/24 17:19 Respiratory Rate 20 04/27/24 17:19 Blood Pressure 127/60 04/27/24 17:19 Pulse Oximetry 98 04/27/24 17:19 Pain Level 6 04/27/24 17:19 Medical Decision Making Imaging Data Radiologic Study: Radiologist's impression: PROCEDURE INFORMATION: Exam: XR Left Knee Exam date and time: 04/27/2024 5:51 PM Age: 44 years old Clinical indication: Injury or trauma; Other: RT knee pain S/P twisting injury skiing TECHNIQUE: Imaging protocol: Radiologic exam of the left knee. Views: 4 or more views. COMPARISON: No relevant prior studies available. FINDINGS: Bones/joints: Joint effusion. Bone density appropriate. Alignment is anatomic. No evidence for fracture. Soft tissues: Normal. IMPRESSION: Joint effusion. Quality:SDOH Health Related Social Needs: No Data to Display PFSH All Active Problems (Updated 04/27/24 @ 18:47 by Johana Ray) Pain of right knee after injury (Acute) Femoral acetabular impingement (Acute) RIGHT Folliculitis (Chronic) Hepatic steatosis (Chronic) 12/2021 FIB-4 score = 0.72 (cirrhosis less likely) Hyperlipidemia, unspecified (Chronic) 12/2021 labs: 10-year ASCVD risk = ~0.8% Elevated LFTs (Acute) Heavy alcohol consumption (Acute) Obesity (Chronic) Lateral femoral cutaneous entrapment syndrome (Chronic) Left Carpal tunnel syndrome of left wrist (Chronic) Acquired unequal limb length (Chronic 11/06/14) GERD (gastroesophageal reflux disease) (Chronic 10/01/14) Metatarsalgia (Chronic 11/03/14) Migraine without aura and without status migrainosus, not intractable (Chronic 05/11/17) Medical History (Updated 04/27/24 @ 18:47 by Johana Ray) Allergic rhinitis, seasonal Sensation of fullness in left ear Closed right clavicular fracture (~04/2015) Separation of right acromioclavicular joint (~04/2015) Fracture of proximal phalanx of hand, open (07/11/19) Surgical History Status post wisdom tooth extraction Family History Mother Essential hypertension Sister Cancer Lung (non-smoker) Father , Esophageal cancer Cancer Other Arthritis Social History Smoking/Tobacco Use Status: Never Smoking risk assessment performed?: Yes Alcohol Intake: current Alcohol Intake frequency: 3 or more drinks per day Alcohol type: hard liquor Drug use: Never Substance use type: does not use Adopted: No Caregiver/Support person: No Foster care: No Household members: children Housing: house Number of Children: 2 Communication Needs: None Education Level: master's degree Do you need help understanding health information?: Rarely current occupation: Teacher Pets and animals: Yes Pets and animals: cat(s) and dog(s) Sexually active: No Do you think of yourself as: straight/heterosexual Current gender identity: male What is your relationship status?: How often do you talk on the phone with friends or family?: once per week How often do you get together with friends or relatives?: once per week How often do you attend yazdanism or mormonism services?: decline to answer Do you belong to any clubs or organized social groups?: no Panel score (0-1 are the most socially isolated patients): 0 What type of physical activity do you participate in: aerobic, regular exercise and other Details: skiing, snow shoeing Duration: 60-90 minutes/day Frequency: 3-4 times per week Special jose needs: No Seatbelt use: always Helmet use: Yes Helmet use: always Drive intox or ride w/intox driver supervisor: No Do you feel safe at home: Yes Do you feel safe in your relationship?: Yes
--- NOTE | 2024-04-27 17:45 | DI.RAD_ITS ---
Exam(s) XR KNEE RT 4V AP,LAT,MADHAVI,PAT EXAM: XR KNEE RT 4V AP,LAT,MADHAVI,PAT CLINICAL HISTORY: RT knee pain s/p twisting injury skiing. TECHNIQUE: 2D digital imaging was performed. Three views. COMPARISON: No exams were available for comparison FINDINGS: BONES: No acute fracture is present. No bony destructive lesion is seen. JOINTS: The knee is normally aligned. A small joint effusion is seen. The joint spaces are maintain ed. SOFT TISSUE: Normal. IMPRESSION: Joint effusion. No evidence of fracture. DATA REPOSITORY: RADIATION DOSE DELIVERED:
--- NOTE | 2024-04-27 19:25 | DI.VRAD_ITS ---
PROCEDURE INFORMATION: Exam: XR Left Knee Exam date and time: 04/27/2024 5:51 PM Age: 44 years old Clinical indication: Injury or trauma; Other: RT knee pain S/P twisting injury skiing TECHNIQUE: Imaging protocol: Radiologic exam of the left knee. Views: 4 or more views. COMPARISON: No relevant prior studies available. FINDINGS: Bones/joints: Joint effusion. Bone density appropriate. Alignment is anatomic. No evidence for fracture. Soft tissues: Normal. IMPRESSION: Joint effusion. Dictated and Authenticated by: Rocio Griffith MD. Ordering:MADY Vaughn MD
[2024-04-27 19:42] VITALS: BP 122/62; PULSE 80; RESP 16; O2SAT 98
== END 2024-04-27 19:43 | disposition home or self-care (01) ==
PROVIDERS: Emergency Provider Nurse Practitioner Family; PCP Nurse Practitioner Adult Health
DX: M25.561 Pain in right knee (principal); M25.461 Effusion, right knee; X50.1XXA Overexertion from prolonged static or awkward postures, initial encounter; Y93.23 Activity, snow (alpine) (downhill) skiing, snowboarding, sledding, tobogganing and snow tubing; Y92.838 Other recreation area as the place of occurrence of the external cause
CPT/HCPCS: 99283; 73564

== ENCOUNTER 2024-06-13 00:24 | Outpatient (CLI) | payer BC, SELFPAY ==
--- NOTE | 2024-06-13 06:15 | DI.MRI_ITS ---
Exam(s) MR LOWER JOINT RT WO EXAM: MR LOWER JOINT RT WO CLINICAL HISTORY: PAIN,INTERNAL DERANGEMENT RT KNEE, M23.91. TECHNIQUE: Multiplanar multisequence MRI was performed. COMPARISON: CR,XR XR KNEE RT 4V AP,LAT,MADHAVI,PAT from 04/27/2024 FINDINGS: BONES: No discrete fracture. Mild edema in the lateral femoral condyle and lateral tibial plateau co nsistent with bone contusions. JOINTS: A moderate-sized joint effusion is present. Articular cartilage: Patellofemoral joint: Articular cartilage is unremarkable. Medial femoral tibial joint: Articular cartilage is unremarkable. Lateral femoral tibial joint: Articular cartilage is unremarkable. LIGAMENTS/TENDONS: Anterior Cruciate: Marked irregularity consistent with full-thickness tear. Posterior Cruciate: Unremarkable. Medial Collateral:Mild amount of surrounding fluid. Lateral Collateral ligament complex: Femoral attachment is indistinct, suspicious for sprain. Extensor mechanism: Unremarkable. Medial retinaculum: Unremarkable. Lateral retinaculum: Unremarkable. Popliteus: Unremarkable. MENISCI: The medial meniscus is unremarkable. The lateral meniscus shows some irregular fraying posteriorly and some adjacent fluid. MUSCLES: Unremarkable. SOFT TISSUES: Mild anterior edema. Tiny Maldonado's cyst. IMPRESSION: Full-thickness tear of the anterior cruciate ligament. Sprain of the lateral collateral ligament near the femoral attachment. Question mild sprain of media l collateral ligament. Irregular fraying at the posterior horn of the lateral meniscus. Moderate-sized joint effusion. Mild contusions of the lateral femoral condyle lateral tibial plateau. DATA REPOSITORY:
== END 2024-06-13 00:44 ==
PROVIDERS: PCP Nurse Practitioner Adult Health; Visit Provider Student in an Organized Health Care Education/Training Program
DX: S83.511A Sprain of anterior cruciate ligament of right knee, initial encounter (principal); X58.XXXA Exposure to other specified factors, initial encounter
CPT/HCPCS: 73721

== ENCOUNTER 2024-08-15 07:40 | Day surgery (SDC) | payer BC, SELFPAY ==
[2024-08-15] VITALS (18 sets, daily range): BP systolic 102–124; BP diastolic 63–88; PULSE 61–85; RESP 14–30; TEMP 36.1–36.6; O2SAT 92–98; BMI 29.9
--- NOTE | 2024-08-15 07:10 | PDOC.DSDIS_ITS ---
Date of service: 08/15/24 Discharge Plan Disposition Patient Disposition: Home Condition: Stable Discharge Details Attending Provider: Ed Florian Primary Care Provider: Kimberly Gaffney Home Meds and New Rx's Prescriptions: New aspirin 81 mg capsule 81 mg PO DAILY 14 Days Qty: 14 0RF naproxen 250 mg tablet 250 - 500 mg PO BID PRN (Reason: moderate pain and swelling) Qty: 40 0RF tramadol 50 mg tablet 50 mg PO Q8H PRN (Reason: severe pain) Qty: 9 0RF Continued tirzepatide (weight loss) 5 mg/0.5 mL pen injector 5 mg subcut QWEEK 28 Days Qty: 2 12RF Rx Instructions: Inject tirzepatide 5 mg subcutaneously once weekly. sumatriptan succinate 50 mg tablet 50 mg PO ONCE MDD 200 PRN (Reason: migraine headache) Qty: 14 0RF Rx Instructions: Take 50 mg. If no response in 2 hrs, take 2nd 50 mg dose. Do not exceed 200 mg/day or 4 days/month clindamycin phosphate 1 % solution 1 applic Topical 1-2 times daily PRN (Reason: folliculitis) Qty: 60 12RF esomeprazole magnesium [Nexium] 20 MG capsule,delayed release(DR/EC) 20 mg PO DAILY fluticasone propionate [Flonase Allergy Relief] 50 mcg/actuation spray,suspension 1 spray intranasal BID PRN (Reason: allergy symptoms) Rx Instructions: administer into each nostril cetirizine [Zyrtec] 10 mg tablet 10 mg PO DAILY Discharge Instructions Additional Instructions: Surgery: Right knee arthroscopy with ACL reconstruction (allograft), partial lateral meniscectomy, and patellar chondroplasty 08/15/24 Activity: Weightbearing as tolerated. No brace or crutches needed as soon as comfortable and stable on knee. Restore full knee extension as soon as possible. Perform early quad sets/quadriceps isometrics. Gradually increase flexion to full. Recommend elevation to minimize swelling discomfort. Encourage ankle pumps and wiggle toes to improve circulation. A physical therapy prescription will be sent electronically to begin in about 3 weeks. Avoid sports activities for 9+ months. Prescriptions: Aspirin 81 mg take 1 daily to prevent a blood clot for 14 days, starting tomorrow Naproxen 250 mg take 1-2 every 12 hours with a meal as needed for moderate pain Tramadol 50 mg take 1 every 8 hours as needed for severe pain You may use szuh-fru-vnmgaey Tylenol (acetaminophen) as needed for mild pain. These pain medications may be taken all at once or in different combinations as needed. Also, recommend Colace (docusate) as a stool softener as surgery and pain medicine cause constipation. You may try biwk-wry-usagree diphenhydramine (Benadryl) 25-50 mg nightly as a sleep aid Dressings: Loosen/adjust SHIMON bandage for comfort. Leave dressing in place for 3 days. May then remove and leave open to air or cover incisions with Band-Aids. Leave the sticky Steri-Strips in place until they fall off or remove them after you shower. May shower after 5 days. Follow-up: 10-[address] Florian You may take off the leg compression stockings this evening at home. You may also leave them on a few days longer if you have a history of leg swelling or edema. Let us know right away if you develop any redness, drainage, fevers, chest pain, or trouble breathing. Do not drink alcohol or drive for at least 24 hours after anesthesia. Please call the office during business hours with any questions or concerns. Stand Alone Forms: Anesthesia Discharge Inst., [facility].Nerve Block Instructions, Crutch Training Instructions, Armen Owens ([facility]) Referrals: Ed Florian MD [ [facility] STAFF PHYSICIAN] - 08/27/24 9:45 am Discharge Orders Discharge Orders: Discharge Order (Routine); Ordered 08/15/24 Ordered By: Morelia Sam DS: Diagnosis Discharge Diagnosis (1) Right ACL tear: Status: Acute (2) Tear of lateral meniscus of right knee: Status: Acute (3) Chondromalacia patellae of right knee: Status: Acute
--- NOTE | 2024-08-15 07:18 | ROE_ITS ---
Operative Note Operative Note PRE-OP DIAGNOSIS: Right knee: 1. ACL rupture 2. Possible lateral meniscus tear Right knee: 1. ACL rupture 2. Lateral meniscus tear 3. Chondromalacia patella PROCEDURE: Right knee: 1. ACL reconstruction, CPT #94733: Quadriceps allograft 2. Partial lateral meniscectomy, CPT #48049 3. Chondroplasty, CPT #56762 SURGEON: Ed Florian TRANSPORTATION MAINTENANCE OPERATOR: Morelia Sam ANESTHESIA TYPE: Local By Surgeon, General LMA/ETT and Primary Nerve Block Refer to Anesthesia Record ESTIMATED BLOOD LOSS: 10 TOURNIQUET TIME: 0 COMPLICATIONS: None Patient was transported to: PACU Patient's condition: stable Implants: Arthrex ACL TightRope II RT and ABS with 8x12 mm cortical button QuadLink pre-sutured quadriceps allograft: 10 x68 mm Indications: Please see complete medical record for details. Findings: Exam under anesthesia: Full range of motion, moderately significant quadriceps a trophy, stable varus valgus, positive pivot glide, interesting Imani exam with solid endpoint after definitively increased translation. Equivocal anterior drawer. Arthroscopic findings: Mild suprapatellar synovitis. Moderate undersurface patellar chondromalacia small central area corresponding to MRI cartilage cleft/tear. Intact medial meniscus medial compartment cartilage. High-grade ACL disruption with largely empty wall sign and moderately large tibial remnant. There was a small strand maybe 10% still attached or scarred shallow to the lateral femoral condyle, which likely created the unusual instability testing. PCL intact. Lateral compartment intact. Lateral meniscus largely intact with small superior leaflet partial-thickness tear does not probe into the meniscus substance or through to the inferior leaflet, which looked like it might have been injured but well-healed. Procedure Description: In the operating room, general anesthesia was induced. The patient was positioned supine on the operating room table. All bony prominences were well- padded. Preoperative antibiotics were administered. The knee was prepped and draped in the usual sterile fashion. The correct patient, procedure, and side of the procedure were all verified prior to incision. Exam under anesthesia was performed. Local anesthetic containing epinephrine was infiltrated about the planned anteromedial, anterolateral, lateral distal femoral, and pretibial surgery sites. The standard high and tight anterolateral and anteromedial portals were established and a complete diagnostic arthroscopy was performed with relevant findings detailed above. A passport cannula was inserted in both the anteromedial and anterolateral portals. The mechanical shaver was used to remove the small amount of suprapatellar adhesions. The shaver was then used to trim and smooth the small area undersurface patellar cartilage to remove irregularity and establish a smooth margin only lightly removing frayed abnormal cartilage to preserve as much as possible. A small amount of patellofemoral inflamed synovitis was resected as well. In the [id number] position, the lateral meniscus was inspected and probed. The superior aspect of the posterior horn near the root and a pretty typical area of ACL lateral meniscus injury there was a small superior leaflet tear that did not progress any significant amount into the meniscal tissue. The superior layer could be displaced as a flap so it was trimmed and contoured to the remainder of the meniscus. The remainder of the meniscus body and inferior leaflet did have possible evidence of a tear that had healed, but could not be violated with the probe and was stable did not require any additional treatment. In the intercondylar area, the ACL remnant was removed leaving enough footprint on the femur and tibia to localize anatomic socket placement. A small notchplasty was performed to allow proper visualization of the back wall. The graft was measured and prepared on the back table. The TightRope II BTB and TightRope II ABS adjustable-loop cortical suspensory fixation implants were loaded on QuadLink pre-sutured quadriceps allograft. The femoral end measured 10 mm in the tibial and 9.5 mm. The graft was marked at 20 mm from each end. On the ABS side, the tensioning sutures were marked and a shuttle suture was added. The graft was manually tensioned and the construct did not demonstrate any elongation. The graft was then compressed in a graft tube and covered with vancomycin soaked sponges. The femoral guide was then placed through the anterolateral portal carefully targeting the appropriate anatomic ACL origin. The outer 9 mm diameter of the guide was positioned anatomically with appropriate space between the proximal and posterior articular margins. On the lateral thigh, drill guide position and angle adjusted to about 60 degree angle to the longitudinal axis of the femur in the coronal plane and 20 degree angle to the trans-epicondylar axis in the axial plane to create the most optimal femoral socket. Knife and snap were used to open the skin and IT band and placed the drill guide on bone while maintaining appropriate position on the lateral wall. The tunnel length was noted to be used for marking and passing the femoral button. The flip cutter was then d rilled to the appropriate location. The drill guide malleted 7 mm into the cortex. The remainder of the targeting guide removed. The FlipCutter was deployed to 10 mm and retrograde reaming done to a depth of 30 mm. Bony debris was removed with the shaver. The flip cutter was then closed, withdrawn, and a FiberStick used to pass a #2 FiberWire shuttle stitch, which was withdrawn out the anterolateral portal. The tibial guide was then used to target the anatomic ACL insertion through the anteromedial portal. The drill angle adjusted to 57.5 degrees and a pretibial incision made. The drill guide was placed on bone, tunnel length noted, and the flip cutter drilled to the appropriate location. The drill guide malleted 7 mm into the cortex. The remainder of the targeting guide removed. The FlipCutter was deployed to 9.5 mm and retrograde reaming done to a depth of 35mm. Bony debris was removed with the shaver. The flip cutter was then closed, withdrawn, and a FiberStick used to pass a #2 FiberWire shuttle stitch, which was withdrawn out the anteromedial portal. The mechanical shaver was used to remove bone debris as well as chamfer and remove soft tissue from the edges of the sockets. A femoral shuttle sutures were withdrawn out the anterior medial portal. The PassPort was removed. This portal dilated to accommodate the graft size. The graft was brought over to the knee and the femoral sutures shuttled out the lateral thigh and advanced until the button was near the far cortex. Under arthroscopic visualization with the knee slightly hyperflexed, and the button was then passed and flipped on the far cortex. Counter traction was then maintained on the tibial side of the graft while it was carefully advanced into the knee and then about 15 mm into the femoral socket. The tibial sutures were then shuttled through the tibial tunnel and passing stitch removed while carefully noting the tensioning stitches. The graft was then dunked about 15 mm into the tibial socket. 8 x 12 mm oblong ABS button was then loaded to the ABS loop and tension sutures used to bring the cortical button down to bone. The graft was advanced nicely evenly into both sockets, and then provisionally tensioned on both the femoral and tibial sides. The knee was then cycled 22 times, tensioning rechecked, and final tightening done with the knee in full extension with a moderate reverse Imani maintained. The graft position and tension were appropriate. There was no impingement in full extension. Imani exam was rockstable. Femoral passing sutures were removed. Backup knots were then tied on both sides and suture tails cut. The knee and all portals were copiously irrigated and then knee drained of arthroscopic fluid. 3-0 Monocryl was used to close the portals and small incisions in a buried interrupted fashion. Mastisol, Steri-Strips, Xeroform, 4 x 4 gauze, and sterile soft roll was applied. The extremity was wrapped gently with an Bob bandage. A soft knee immobilizer placed. The patient awoke from anesthesia without complication and was transferred to the recovery room in a stable condition. Date of Procedure: 08/15/24
--- NOTE | 2024-08-15 08:41 | ANES.PREOP_ITS ---
General Info Date of Service Date Performed: 08/15/24 Height: 5 ft 7 in Weight: 86.8 kg Body Mass Index (BMI): 29.9 Surgical Procedure: Operation Date: 08/15/24 08:40 Proposed Procedure Side Surgeon p Knee ACL Reconstruction, ALLOGRAFT Right Ed Florian MD Actual Procedure Side Surgeon p Knee ACL Reconstruction, ALLOGRAFT Right Ed Florian MD Pre-Op Diagnosis Post-Op Diagnosis RIGHT ACL TEAR Meds Allergies and Home Medications Allergies Allergy/AdvReac Type Severity Reaction Status Date / Time Penicillins Allergy Intermediate Hives Verified 08/15/24 08:15 Home Medication ?Medication ?Instructions ?Recorded esomeprazole magnesium 20 mg 20 mg PO DAILY 03/21/17 capsule,delayed release (Nexium) fluticasone propionate 50 1 spray intranasal BID PRN allergy 01/07/20 mcg/actuation nasal symptoms spray,suspension (Flonase Allergy Relief) cetirizine 10 mg tablet (Zyrtec) 10 mg PO DAILY 01/08/20 clindamycin phosphate 1 % topical 1 applic topical 1-2 times daily 02/25/24 solution PRN folliculitis #60 mL sumatriptan succinate 50 mg tablet 50 mg PO ONCE PRN migraine 03/31/24 headache #14 tab-caps tirzepatide (weight loss) 5 mg/0.5 5 mg (0.5 mL) subcut QWEEK 28 days 06/20/24 mL subcutaneous pen injector #2 mL Current Visit Medications: Current Medications Generic Name Dose Route Start Last Admin Trade Name Freq PRN Reason Stop Dose Admin Ringer's Solution 1,000 mls @ 30 mls/hr 08/15/24 06:00 IV 08/15/24 23:59 INFUSION VIPIN Cefazolin Sodium/Dextrose 2 gm in 50 mls @ 100 mls/hr 08/15/24 06:00 Ancef Duplex IVPB 08/15/24 23:59 PREOP VIPIN Tranexamic Acid/Sodium Chloride 1,000 mg in 100 mls @ 600 mls/hr 08/15/24 06:00 IVPB 08/15/24 23:59 PREOP VIPIN IV Miscellaneous Supplies 1 each 08/15/24 06:00 Iv Access IV 08/15/24 23:59 DIRECTED VIPIN Oxycodone HCl 0 mg 08/15/24 07:10 Oxycodone 5 Mg Tab PO 09/14/24 07:09 Q3H PRN PRN Pain Sodium Chloride 0 ml 08/15/24 06:00 Normal Saline Flush 10 Ml Syr IV 08/15/24 23:59 PRN PRN Sodium Chloride 0 ml 08/15/24 06:00 Normal Saline 10 Ml Vial IJ 08/15/24 23:59 DIRECTED PRN Sterile Water 0 ml 08/15/24 06:00 Water,Injection,Sterile 10 Ml Vial IJ 08/15/24 23:59 DIRECTED PRN PFSH Active Problems Active Problems: Problem Status Onset Code Right ACL tear Acute ~04/27/24 S83.511A Internal derangement of right knee Acute ~04/27/24 M23.91 Femoral acetabular impingement Acute M25.859 Folliculitis Chronic L73.9 Hepatic steatosis Chronic K76.0 Hyperlipidemia, unspecified Chronic E78.5 Elevated LFTs Acute R79.89 Heavy alcohol consumption Acute Z78.9 Obesity Chronic E66.9 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 Carpal tunnel syndrome of left wrist Chronic G56.02 Acquired unequal limb length Chronic 11/06/14 M21.70 GERD (gastroesophageal reflux disease) Chronic 10/01/14 K21.9 Metatarsalgia Chronic 11/03/14 M77.40 Migraine without aura and without status migrainosus, not intractable Chronic 05/11/17 G43.009 Medical History Medical History Allergic rhinitis, seasonal Sensation of fullness in left ear Closed right clavicular fracture (~04/2015) Separation of right acromioclavicular joint (~04/2015) Fracture of proximal phalanx of hand, open (07/11/19) Surgical History Surgical History Status post wisdom tooth extraction Tobacco Smoking/Tobacco Use Status: Former Tobacco Use Passive smoking exposure: No Alcohol Alcohol Intake: current Alcohol intake frequency: 0-2 drinks per day Alcohol type: hard liquor Substance Use Substance use: Never Substance use type: does not use Vital Signs and Lab Results Vital Signs Most Recent Vital Signs in EMR: Most Recent Vital Signs Temp Pulse Resp BP Pulse Ox 36.5 C 76 16 124/87 98 08/15/24 08:07 08/15/24 08:07 08/15/24 08:07 08/15/24 08:07 08/15/24 08:07 Lab Results Blood Type / Crossmatch: No Data to Display Complete Blood Count: No Data to Display Complete Metabolic Panel: No Data to Display Liver Function Panel: No Data to Display Coagulation Panel: No Data to Display Cardiac Panel: No Data to Display Arterial Blood Gas: No Data to Display Venous Blood Gas: No Data to Display Pancreas Panel: No Data to Display Thyroid Panel: No Data to Display Infectious Disease: No Data to Display Blood Cultures: No Data to Display Toxicology Panel: No Data to Display Imaging and Studies Imaging and Studies Study information below may be from another EMR and interpreted by another provider. Please see original notes in EMR for more complete details. EKG Summary: EKG PATIENT NAME: Prabhjot Dee UNIT #: [id number] ORDERING PROVIDER: Sudhir Farrell DO PRIMARY CARE PROVIDER: CURT GEORGE NP DATE/TIME OF SERVICE: 02/08/21 0950 : 1980 PERFORMING LOCATION: [facility] APPROVED REPORT Exam: Resting ECG Reason for Exam: chest tightness Patient Location: O HR:81 bpm ECG Measurements Heart Rate 81 AXIS NH 149 P 35 QRSd 98 QRS 88 QT 356 T19 QTc 413 Conclusion Sinus rhythm...normal P axis, V-rate 60- 99 Normal Electrocardiogram <Electronically signed by LEIDY MATA MD in [facility]> E-Sign Date: 02/08/21 E-Sign Time: 1017 Anesthesia Assessment and Plan Anesthesia History Personal History: No History of Anesthesia Complications Family History: No Family History of Anesthesia Complications Exercise Tolerance Exercise Tolerance: Metabolic Equivalents>4 Pertinent Negatives Pertinent Negatives: No Symptoms of GERD (On Nexium), No Major Cardiovascular Symptoms or Complaints, No Major Pulmonary Symptoms or Complaints and No History of CVA/TIA Cardiac & Pulmonary Exam Cardiac Exam: Normal S1/S2 Heart Sounds Pulmonary Exam: Clear Bilateral Breath Sounds Implantable Cardiac Device Does patient have a Pacemaker or an ICD?: No Airway Exam Known Difficult Airway: No Mallampati Class: 2 Mouth Opening: Normal (> 3cm) Thyromental Distance: Greater than 3 cm Neck Range of Motion: Full ROM Neck Circumference: Normal Teeth Condition: Normal Dentition ASA Classification ASA Score: ASA 2 Emergency Case?: No NPO Status NPO Status: NPO Clears >2 hours, Solids >8 hours Anesthesia Plan Resuscitation Status: Full Code Anesthesia Technique: General Anesthesia Airway Planned: Endotracheal Tube Pain Management: Surgeon and patient request nerve block Monitors Used: Standard Monitors and SedLine Preoperative Comments:: Left hip pinched nerve, indicated left hand carpal tunnel, denied any RLE paresthesia or nerve issues. Discussed plan, alternatives, risks benefits at length. Patient would like to proceed with right adductor canal block (with geniculates if they are easily visible) and GETA today.
[2024-08-15] MEDS: Lactated Ringers 1,000 ML 30 ML IV (08:54)
[2024-08-15] MEDS: ceFAZolin 2 GM/50 ML BAG IVPB (10:24)
[2024-08-15] MEDS: TRANEXAMIC ACID/SOD. CHL. 1,000 MG/100 ML BAG 600 MG IVPB (10:39)
[2024-08-15] MEDS: Bupivacaine 0.25% Pres-Free W/EPI 30 ML VIAL (10:43)
--- NOTE | 2024-08-15 10:51 | ANES.NERVE_ITS ---
Nerve Block Single Injection Procedure Date and Time Date Performed: 08/15/24 Procedure Start: 09:56 Location Where Procedure Performed Procedure Location: Day Surgery Unit Reason Performed: Postoperative Analgesia Requesting Provider: Ed Florian Timeout Performed Timeout Performed: Yes Monitoring Used ECG, Blood Pressure, SpO2 and See EMR for corresponding vital signs Sterility Sterility: Hand Hygiene, Surgical Cap, Surgical Mask, Sterile Gloves and Chlorhexidine Sedation Given During Procedure Sedation Given (Indicate Dose Given): Versed IV Dose:: 2 mg and Precedex IV Dose:: 8 mcg Patient Mental Status Patient Mental Status: Sedate with meaningful communication Nerve Block 1st Nerve Block: Laterality: Right Block Type: Adductor Canal (with geniculates) Ultrasound Image Saved?: Yes Needle / Catheter Used: 100mm SonoPlex II Local Anesthetic Bolus (Indicate Dose Given): Lidocaine used for local infiltration of skin, Injected in 3-5ml increments after negative blood aspirat ion and Bupivacaine 0.25% Dose:: 15 ml Additives (Indicate Dose Given): None Ultrasound: Sterile probe cover and gel used Nerve Stimulator: Supplement to Ultrasound use and No twitch or parasthesia noted < 0.5 mA Paresthesia: None Procedure Tolerated: No Complications and Patient tolerated well Procedure Outcome: Successful Performed By: Prabhjot Payne Other (not listed above): Ann Cristobal student shadow
[2024-08-15] MEDS: Vancomycin 1,000 MG VIAL 1000 MG (10:56)
[2024-08-15] MEDS: EPINEPHrine 10 MG/10 ML ML (10:57)
--- NOTE | 2024-08-15 13:46 | W.ANESPOSTOP ---
Postoperative Evaluation Date, Time and Location Date Performed: 08/15/24 Time Performed: 13:46 Patient Location: Day Surgery Unit Vital Signs Most Recent Imported Vital Signs: Most Recent Vital Signs Temp Pulse Resp BP Pulse Ox 36.1 C L 72 14 105/69 94 08/15/24 13:25 08/15/24 13:25 08/15/24 13:25 08/15/24 13:25 08/15/24 13:25 Pain Score Most Recent Pain Score: Most Recent Pain Score Pain Level 0 08/15/24 13:25 Assessment Mental Status: Awake (Alert & Oriented to Patient Baseline) Airway and Respiratory Function: Patent airway with normal (patient baseline) respiratory exam Cardiovascular Function: Hemodynamically Stable Hydration Status: Adequately Hydrated Nausea & Vomiting: No Nausea or Vomiting Pain: Pt. Denies Any Pain Peripheral Nerve Block: Regional nerve block not resolved at time of post operative discharge
== END 2024-08-15 15:22 | disposition home or self-care (01) ==
LOC: SUR 07:40
PROVIDERS: PCP Nurse Practitioner Adult Health; Visit Provider Student in an Organized Health Care Education/Training Program
PROC: (CPT 29888; principal; 2024-08-15 08:30)
DX: S83.511A Sprain of anterior cruciate ligament of right knee, initial encounter (principal); M23.91 Unspecified internal derangement of right knee; X50.0XXA Overexertion from strenuous movement or load, initial encounter; S83.281A Other tear of lateral meniscus, current injury, right knee, initial encounter; M22.41 Chondromalacia patellae, right knee; G89.18 Other acute postprocedural pain
CPT/HCPCS: 29888; 64447; J0131; J0665; J0690; J1100; J1171; J1885; J2003; J2250; J2405; J2704; J3370; J3475

== ENCOUNTER 2024-08-21 01:49 | Outpatient (CLI) | payer BC, SELFPAY | END 2024-08-21 01:50 | disposition home or self-care (01) | LOC: LBO 01:49 | PROVIDERS: PCP Nurse Practitioner Adult Health; Visit Provider Nurse Practitioner Adult Health | DX: K76.0 Fatty (change of) liver, not elsewhere classified (principal); E66.09 Other obesity due to excess calories; Z68.34 Body mass index [BMI] 34.0-34.9, adult | CPT/HCPCS: 36415; 84443 ==

== ENCOUNTER 2025-02-24 06:21 | Day surgery (SDC) | payer BC, SELFPAY ==
[2025-02-24 06:41] VITALS: BP 125/78; PULSE 81; RESP 16; TEMP 36.7; O2SAT 100
[2025-02-24] MEDS: Cephalexin 500 MG CAP 1000 MG PO (06:53)
--- NOTE | 2025-02-24 07:01 | W.PM.DSUDISC ---
Date of service: 02/24/25 Discharge Plan Disposition Patient Disposition: Home Condition: Good Discharge Details Reason For Visit: Left carpal tunnel syndrome Attending Provider: Chicho Sr Primary Care Provider: Kimberly Gaffney Home Meds and New Rx's Prescriptions: New acetaminophen 500 mg tablet 500 mg PO Q6H PRN (Reason: pain) Qty: 60 2RF hydrocodone-acetaminophen 5-325 mg tablet 1 tab PO Q6H PRN (Reason: severe pain) Qty: 4 0RF Rx Instructions: Take one tablet up to every 6 hours as needed for severe postoperative pain ibuprofen 600 mg tablet 600 mg PO TID PRN (Reason: pain) Qty: 60 0RF Continued tirzepatide (weight loss) 5 mg/0.5 mL pen injector 5 mg subcut QWEEK 28 Days Qty: 2 12RF Rx Instructions: Inject tirzepatide 5 mg subcutaneously once weekly. clindamycin phosphate 1 % solution 1 applic Topical 1-2 times daily PRN (Reason: folliculitis) Qty: 60 12RF bupropion HCl [Wellbutrin XL] 150 mg tablet extended release 24 hr 150 mg PO QAM MDD 450 mg Qty: 30 2RF Rx Instructions: 01/08/25 part of dose increase from 300 mg, qAM bupropion HCl [Wellbutrin XL] 300 mg tablet extended release 24 hr 300 mg PO QAM MDD 450 mg Qty: 30 1RF esomeprazole magnesium [Nexium] 20 MG capsule,delayed release(DR/EC) 20 mg PO DAILY fluticasone propionate [Flonase Allergy Relief] 50 mcg/actuation spray,suspension 1 spray intranasal BID PRN (Reason: allergy symptoms) Rx Instructions: administer into each nostril cetirizine [Zyrtec] 10 mg tablet 10 mg PO DAILY sumatriptan succinate 50 mg tablet See Rx Instructions .ROUTE .COMPLEX Qty: 14 6RF Dose Instruction: TAKE 1 TABLET BY MOUTH NEEDED FOR MIGRAINE HEADACHE,IF NO RESPONSE IN 2 HOURS, TAKE 2ND 50 MG DOSE. DO NOT EXCEED 200 MG/DAY OR 4 DAYS/MONTH Rx Instructions: TAKE 1 TABLET BY MOUTH NEEDED FOR MIGRAINE HEADACHE,IF NO RESPONSE IN 2 HOURS, TAKE 2ND 50 MG DOSE. DO NOT EXCEED 200 MG/DAY OR 4 DAYS/MONTH Discharge Instructions Stand Alone Forms: Remberto Guillermo Tunnel Release, Portal Information Activity:: Elevate Remove Dressings/Wound Care:: 48 hours Shower/Bathe:: 48 hours Diet:: As Tolerated Discharge Orders Discharge Orders: Discharge Order (Routine); Ordered 02/24/25 Ordered By: Manuela Cummins
[2025-02-24] MEDS: Lidocaine 1% Multi-Dose W/EPI 1/100,000 50 ML VIAL (07:37)
[2025-02-24] MEDS: Sodium Bicarbonate 50 MEQ/50 ML VIAL (07:37)
[2025-02-24 07:51] VITALS: BP 119/90; PULSE 72; RESP 18; TEMP 36; O2SAT 100
--- NOTE | 2025-02-24 07:54 | ROE_ITS ---
Operative Note Operative Note PRE-OP DIAGNOSIS: Left Carpal Tunnel Syndrome POST-OP DIAGNOSIS: same PROCEDURE: Left Endoscopic Carpal Tunnel Release SURGEON: Chicho Sr ANESTHESIA TYPE: Local By Surgeon Refer to Anesthesia Record ESTIMATED BLOOD LOSS: 0 PATHOLOGY: none sent TOURNIQUET TIME: 5 COMPLICATIONS: None Patient was transported to: same day Patient's condition: stable Indications: I have seen Prabhjot in clinic for symptoms of carpal tunnel syndrome. The numbness, tingling, and pain limited function. Clinical exam findings with nerve conduction tests confirmed the diagnosis of carpal tunnel syndrome. Nonoperative measures such as bracing, time, activity modifications had been tried but disability and pain persisted. I discussed carpal tunnel release with the patient. I reviewed the risks of the procedure to include, but not limited to, bleeding, infection, pain, stiffness, incomplete release, damage to nerves or vessels, persistent numbness, recurrence. Despite these risks, the patient elected to proceed. Findings: There was tightened carpal tunnel. This was dilated and released successfully with the endoscopic with increased space within the tunnel. The antebrachial fascia was released proximally freeing the median nerve at the wrist. Procedure Description: Prabhjot was greeted in the preoperative holding area where the correct side was identified and marked. The consent was reviewed with the patient and signed. The history and physical was updated. All questions were answered. He was taken back to the operating room. The patient was placed into the supine position on the operating room table with the left arm on an arm board. A nonsterile tourniquet was placed high onto the arm. All bony prominences were well padded. Prophylactic antibiotics in the form of Cephalexin were administered in DSU. The left arm was then prepped with Chloraprep and draped in a standard fashion with stockinette and extremity drape. A timeout to confirm correct identity, side and site, procedure, allergies, anesthesia, and medical concerns was performed. The surgical site was marked in the volar wrist creases in line with the radial border of the fourth ray. This area was anesthetized with approximately 6cc of 1% Lidocaine. The limb was then exsanguinated with an Esmarch. The skin was incised with a 15 blade, approximately 1cm. The skin only was cut and the deeper tissue was dissected bluntly with a tenotomy scissor, avoiding passing nerve and venous structures. The fascia was penetrated and opened bluntly. A two-prong skin hook was placed under this proximal fascial edge. A series of hamate finders were used to identify and dilate the carpal tunnel. Synovial elevator was used to free synovial attachments to the underside of the transverse carpal ligament. My thumb was kept in the palm to karina the distal extent of the carpal tunnel and correctly position the hand. The Microaire endoscope was inserted without difficulty and without resistance. Excellent visualization showed horizontally running fibers of the transverse carpal liga ment (TCL). The distal extent of the TCL was visualized and the end of the scope palpated with the thumb. The blade was elevated and withdrawn from distal to proximal. The TCL was split into two flaps. The endoscope was reinserted to confirm complete release and any remnant ligament was incised. The scope was withdrawn and the proximal aspect of the carpal tunnel was grossly inspected and appeared release with the median nerve visible. The antebrachial fascia at the level of the wrist was then freed from the overlying skin and then the underlying median nerve with blunt dissection. This was transected longitudinally for about 3cm proximal to the wrist incision. The wound was then irrigated with easy flow of irrigant distally and proximally. The incision was closed with a single 4-0 Nylon suture. The wound was dressed with Xeroform, Gauze, Kerlix and Bob. The tourniquet was deflated with the initial dressing and held with some pressure. Blood flow returned easily to all digits with capillary refill less than 2 seconds. The patient tolerated the procedure well and was returned to the Same Day Surgery area in a stable condition suffering no known complication. Date of Procedure: 02/24/25
== END 2025-02-24 08:04 | disposition home or self-care (01) ==
PROVIDERS: PCP Nurse Practitioner Adult Health; Visit Provider Student in an Organized Health Care Education/Training Program
PROC: 01N54ZZ Release Median Nerve, Percutaneous Endoscopic Approach (ICD-10-PCS; CPT 29848; principal; 2025-02-24 07:30)
DX: G56.02 Carpal tunnel syndrome, left upper limb (principal)
CPT/HCPCS: 29848; J2004

== ENCOUNTER → 2025-03-06 02:38 | Outpatient (CLI) | payer BC, SELFPAY ==
--- NOTE | 2025-03-06 07:00 | DI.MRI_ITS ---
Exam(s) MR LOWER JOINT RT WO EXAM: MR LOWER JOINT RT WO CLINICAL HISTORY: S/P ACL REPAIR, NEW INSTABILITY,rt acl tear,s83.511a. TECHNIQUE: Multiplanar multisequence MRI was performed. COMPARISON: CR,XR XR KNEE RT 4V AP,LAT,MADHAVI,PAT from 04/27/2024 MR MR LOWER JOINT RT WO from 06/13/2024 FINDINGS: BONES: There is no fracture or contusion pattern. Status post ACL repair. JOINTS: A small joint effusion is present. Articular cartilage: Patellofemoral joint: Small linear defect again noted at the patellar apex. Medial femoral tibial joint: Articular cartilage is unremarkable. Lateral femoral tibial joint: Articular cartilage is unremarkable. LIGAMENTS/TENDONS: Anterior Cruciate: Patient is status post ACL repair however this appears discontinuous consistent with retear.. Posterior Cruciate: Unremarkable. Medial Collateral:Unremarkable. Lateral Collateral ligament complex: Unremarkable. Extensor mechanism: Unremarkable. Medial retinaculum: Unremarkable. Lateral retinaculum: Unremarkable. Popliteus: Unremarkable. MENISCI: The medial meniscus is unremarkable. The lateral meniscus is unremarkable. MUSCLES: Unremarkable. SOFT TISSUES: Tiny Maldonado's cyst. IMPRESSION: Full-thickness tear of the anterior cruciate ligament repair. DATA REPOSITORY:
== END ==
LOC: DI 02:38
PROVIDERS: PCP Nurse Practitioner Adult Health; Visit Provider Student in an Organized Health Care Education/Training Program
DX: S83.511A Sprain of anterior cruciate ligament of right knee, initial encounter (principal)
CPT/HCPCS: 73721

== ENCOUNTER 2025-03-10 15:59 | Outpatient (CLI) | payer BC, SELFPAY ==
--- NOTE | 2025-03-10 14:30 | DI.RAD_ITS ---
Exam(s) XR KNEE RT 2V AP,LAT EXAM: XR KNEE RT 2V AP,LAT CLINICAL HISTORY: RIGHT KNEE PAIN. TECHNIQUE: 2D digital imaging was performed. Two views. COMPARISON: CR,XR XR KNEE RT 4V AP,LAT,MADHAVI,PAT from 04/27/2024 MR MR LOWER JOINT RT WO from 03/06/2025 FINDINGS: BONES: No acute fracture is present. No bony destructive lesion is seen. Metallic densities related to ACL repair are noted in the distal femur and proximal tibia. JOINTS: The knee is normally aligned. No joint effusion is seen. The joint spaces are maintained. SOFT TISSUE: Normal. IMPRESSION: Status post ACL repair DATA REPOSITORY: RADIATION DOSE DELIVERED:
== END 2025-03-10 16:00 | disposition home or self-care (01) ==
LOC: DIORS 16:00
PROVIDERS: PCP Nurse Practitioner Adult Health; Visit Provider Student in an Organized Health Care Education/Training Program
DX: S83.511D Sprain of anterior cruciate ligament of right knee, subsequent encounter (principal); X58.XXXD Exposure to other specified factors, subsequent encounter; M25.561 Pain in right knee
CPT/HCPCS: 73560

== ENCOUNTER 2025-03-30 06:00 | Day surgery (SDC) | payer BC, SELFPAY ==
[2025-03-30] VITALS (21 sets, daily range): BP systolic 98–130; BP diastolic 52–84; PULSE 77–94; RESP 15–25; TEMP 36–36.6; O2SAT 95–99; BMI 27.3
[2025-03-30] MEDS: Lactated Ringers 1,000 ML 30 ML IV (06:47)
--- NOTE | 2025-03-30 07:11 | PDOC.DSDIS_ITS ---
Date of service: 03/30/25 Discharge Plan Disposition Patient Disposition: Home Condition: Stable Discharge Details Attending Provider: Ed Florian Primary Care Provider: Kimberly Gaffney Home Meds and New Rx's Prescriptions: New aspirin 81 mg capsule 81 mg PO DAILY 14 Days Qty: 14 0RF naproxen 250 mg tablet 250 - 500 mg PO BID PRN (Reason: moderate pain and swelling) Qty: 40 0RF tramadol 50 mg tablet 50 mg PO Q8H PRN (Reason: severe pain) Qty: 9 0RF Continued tirzepatide (weight loss) 5 mg/0.5 mL pen injector 5 mg subcut QWEEK 28 Days Qty: 2 12RF Rx Instructions: Inject tirzepatide 5 mg subcutaneously once weekly. clindamycin phosphate 1 % solution 1 applic Topical 1-2 times daily PRN (Reason: folliculitis) Qty: 60 12RF bupropion HCl [Wellbutrin XL] 150 mg tablet extended release 24 hr 150 mg PO QAM MDD 450 mg Qty: 30 2RF Rx Instructions: 01/08/25 part of dose increase from 300 mg, qAM bupropion HCl [Wellbutrin XL] 300 mg tablet extended release 24 hr 300 mg PO QAM MDD 450 mg Qty: 30 1RF esomeprazole magnesium [Nexium] 20 MG capsule,delayed release(DR/EC) 20 mg PO DAILY fluticasone propionate [Flonase Allergy Relief] 50 mcg/actuation spray,suspension 1 spray intranasal BID PRN (Reason: allergy symptoms) Rx Instructions: administer into each nostril cetirizine [Zyrtec] 10 mg tablet 10 mg PO DAILY sumatriptan succinate 50 mg tablet See Rx Instructions .ROUTE .COMPLEX Qty: 14 6RF Dose Instruction: TAKE 1 TABLET BY MOUTH NEEDED FOR MIGRAINE HEADACHE,IF NO RESPONSE IN 2 HOURS, TAKE 2ND 50 MG DOSE. DO NOT EXCEED 200 MG/DAY OR 4 DAYS/MONTH Rx Instructions: TAKE 1 TABLET BY MOUTH NEEDED FOR MIGRAINE HEADACHE,IF NO RESPONSE IN 2 HOURS, TAKE 2ND 50 MG DOSE. DO NOT EXCEED 200 MG/DAY OR 4 DAYS/MONTH acetaminophen 500 mg tablet 500 mg PO Q6H PRN (Reason: pain) Qty: 60 2RF Discontinued ibuprofen 600 mg tablet 600 mg PO TID PRN (Reason: pain) Qty: 60 0RF Discharge Instructions Additional Instructions: Surgery: Right knee arthroscopy with revision ACL reconstruction (quadriceps allograft) and tiny partial lateral meniscectomy 03/30/25 Activity: Weightbearing as tolerated. No brace or crutches needed as soon as comfortable and stable on knee. Use brace while sleeping to avoid potential cause of injury again. Restore full knee extension as soon as possible. Perform early quad sets/quadriceps isometrics. Gradually increase flexion to full. Recommend elevation to minimize swelling discomfort. Encourage ankle pumps and wiggle toes to improve circulation. A physical therapy prescription will be sent electronically to begin in about 3 weeks. Avoid sports activities for 9+ months. Prescriptions: Aspirin 81 mg take 1 daily to prevent a blood clot for 14 days, starting tomorrow Naproxen 250 mg take 1-2 every 12 hours with a meal as needed for moderate pain Tramadol 50 mg take 1 every 8 hours as needed for severe pain You may use [id number] Tylenol (acetaminophen) as needed for mild pain. These pain medications may be taken all at once or in different combinations as needed. Also, recommend Colace (docusate) as a stool softener as surgery and pain medicine cause constipation. You may try [id number] diphenhydramine (Benadryl) 25-50 mg nightly as a sleep aid Dressings: Loosen/adjust SHIMON bandage for comfort. Leave dressing in place for 3 days. May then remove and leave open to air or cover incisions with Band-Aids. Leave the sticky Steri-Strips in place until they fall off or remove them after you shower. May shower after 5 days. Follow-up: 10-[address] Florian You may take off the leg compression stockings this evening at home. You may also leave them on a few days longer if you have a history of leg swelling or edema. Let us know right away if you develop any redness, drainage, fevers, chest pain, or trouble breathing. Do not drink alcohol or drive for at least 24 hours after anesthesia. Please call the office during business hours with any questions or concerns. Stand Alone Forms: Anesthesia Discharge Inst., Anes.Nerve Block Instructions, Armen Owens (DSU), Portal Information Referrals: Ed Florian MD [ [facility] STAFF PHYSICIAN, Orthopaedic Surgical] - 04/14/25 11:15 am Discharge Orders Discharge Orders: Discharge Order (Routine); Ordered 03/30/25 Ordered By: Morelia Sam DS: Diagnosis Discharge Diagnosis (1) Right ACL tear: Status: Acute (2) Tear of lateral meniscus of right knee: Status: Acute
--- NOTE | 2025-03-30 07:24 | W.ANESPRE ---
General Info Date of Service Date Performed: 03/30/25 Height: 5 ft 7 in Weight: 79.1 kg Body Mass Index (BMI): 27.3 Surgical Procedure: Operation Date: 03/30/25 07:40 Proposed Procedure Side Surgeon p Knee Revision ACL Reconstruction (Quadriceps Allograft) Right Ed Florian MD s Hardware Removal Right Ed Florian MD Actual Procedure Side Surgeon p Knee Revision ACL Reconstruction (Quadriceps Allograft) Right Ed Florian MD s Hardware Removal Right Ed Florian MD Meds Allergies and Home Medications Allergies Allergy/AdvReac Type Severity Reaction Status Date / Time Penicillins Allergy Intermediate Hives Verified 03/30/25 06:19 Home Medication ?Medication ?Instructions ?Recorded esomeprazole magnesium 20 mg 20 mg PO DAILY 03/21/17 capsule,delayed release (Nexium) fluticasone propionate 50 1 spray intranasal BID PRN allergy 01/07/20 mcg/actuation nasal symptoms spray,suspension (Flonase Allergy Relief) cetirizine 10 mg tablet (Zyrtec) 10 mg PO DAILY 01/08/20 clindamycin phosphate 1 % topical 1 applic topical 1-2 times daily 02/25/24 solution PRN folliculitis #60 mL tirzepatide (weight loss) 5 mg/0.5 5 mg (0.5 mL) subcut QWEEK 28 days 06/20/24 mL subcutaneous pen injector #2 mL sumatriptan succinate 50 mg tablet See Rx Instructions .Route 12/18/24 .COMPLEX #14 tabs bupropion HCl 150 mg 24 hr tablet, 150 mg PO QAM #30 tabs 01/08/25 extended release (Wellbutrin XL) bupropion HCl 300 mg 24 hr tablet, 300 mg PO QAM #30 tabs 01/08/25 extended release (Wellbutrin XL) acetaminophen 500 mg tablet 500 mg PO Q6H PRN pain #60 tabs 02/24/25 aspirin 81 mg capsule 81 mg PO DAILY prevent blood clot 03/30/25 14 days #14 caps naproxen 250 mg tablet 250 - 500 mg (1 - 2 x 250 mg) PO 03/30/25 BID PRN moderate pain and swelling #40 tabs tramadol 50 mg tablet 50 mg PO Q8H PRN severe pain #9 03/30/25 tabs Current Visit Medications: Current Medications Generic Name Dose Route Start Last Admin Trade Name Abdonq PRN Reason Stop Dose Admin Droperidol 0.625 mg 03/30/25 06:46 Droperidol 5 Mg/2 Ml Vial IVP 04/29/25 06:45 DIRECTED PRN Ephedrine Sulfate 0 mg 03/30/25 06:46 Ephedrine 25 Mg/5 Ml Syringe IVP 04/29/25 06:45 DIRECTED PRN Fentanyl 0 mcg 03/30/25 06:46 Fentanyl 100 Mcg/2 Ml Vial IVP 04/29/25 06:45 DIRECTED PRN Hydromorphone HCl 0 mg 03/30/25 06:46 Hydromorphone 2 Mg/Ml Syr IVP 04/29/25 06:45 DIRECTED PRN Ringer's Solution 1,000 mls @ 30 mls/hr 03/30/25 06:00 03/30/25 06:47 IV 03/30/25 23:59 30 mls/hr INFUSION VIPIN Administration Cefazolin Sodium/Dextrose 2 gm in 50 mls @ 100 mls/hr 03/30/25 06:00 Ancef Duplex IVPB 03/30/25 23:59 PREOP VIPIN Tranexamic Acid/Sodium Chloride 1,000 mg in 100 mls @ 600 mls/hr 03/30/25 06:00 IVPB 03/30/25 23:59 PREOP VIPIN Naloxone HCl 0 mg 03/30/25 06:46 Naloxone 0.4 Mg/Ml Vial IVP 04/29/25 06:45 PRN PRN Oxycodone HCl 0 mg 03/30/25 07:10 Oxycodone 5 Mg Tab PO 04/29/25 07:09 Q3H PRN PRN Pain Sodium Chloride 0 ml 03/30/25 06:00 Normal Saline Flush 10 Ml Syr IV 03/30/25 23:59 PRN PRN Sodium Chloride 0 ml 03/30/25 06:00 Normal Saline 10 Ml Vial IJ 03/30/25 23:59 DIRECTED PRN Sterile Water 0 ml 03/30/25 06:00 Water,Injection,Sterile 10 Ml Vial IJ 03/30/25 23:59 DIRECTED PRN PFSH Active Problems Active Problems: Problem Status Onset Code No-show for appointment Acute Z91.199 ADHD (attention deficit hyperactivity disorder), inattentive type Acute F90.0 Chondromalacia patellae of right knee Acute M22.41 Tear of lateral meniscus of right knee Acute S83.281A Right ACL tear Acute ~04/27/24 S83.511A Femoral acetabular impingement Acute M25.859 Folliculitis Chronic L73.9 Hepatic steatosis Chronic K76.0 Hyperlipidemia, unspecified Chronic E78.5 Elevated LFTs Acute R79.89 Heavy alcohol consumption Acute Z78.9 Obesity Chronic E66.9 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 Acquired unequal limb length Chronic 11/06/14 M21.70 GERD (gastroesophageal reflux disease) Chronic 10/01/14 K21.9 Metatarsalgia Chronic 11/03/14 M77.40 Migraine without aura and without status migrainosus, not intractable Chronic 05/11/17 G43.009 Medical History Medical History Internal derangement of right knee (~04/27/24) Allergic rhinitis, seasonal Sensation of fullness in left ear Closed right clavicular fracture (~04/2015) Separation of right acromioclavicular joint (~04/2015) Fracture of proximal phalanx of hand, open (07/11/19) Surgical History Surgical History H/O reconstruction of anterior cruciate ligament tear Carpal tunnel syndrome of left wrist S/P L ECTR: 02/24/2025 Status post wisdom tooth extraction Tobacco Smoking/Tobacco Use Status: Former Tobacco Use Passive smoking exposure: No Alcohol Alcohol Intake: current Alcohol intake frequency: a few times a week Substance Use Substance use: Never Substance use type: does not use Vital Signs and Lab Results Vital Signs Most Recent Vital Signs in EMR: Most Recent Vital Signs Temp Pulse Resp BP Pulse Ox 36.6 C 80 16 130/80 98 03/30/25 06:15 03/30/25 06:15 03/30/25 06:15 03/30/25 06:15 03/30/25 06:15 Imaging and Studies Imaging and Studies Study information below may be from another EMR and interpreted by another provider. Please see original notes in EMR for more complete details. EKG Summary: EKG PATIENT NAME: Prabhjot Dee UNIT #: [id number] ORDERING PROVIDER: Sudhir Farrell DO PRIMARY CARE PROVIDER: CURT GEORGE NP DATE/TIME OF SERVICE: 02/08/21 0950 : 1980 PERFORMING LOCATION: [facility] APPROVED REPORT Exam: Resting ECG Reason for Exam: chest tightness Patient Location: O HR:81 bpm ECG Measurements Heart Rate 81 AXIS KS 149 P 35 QRSd 98 QRS 88 QT 356 T19 QTc 413 Conclusion Sinus rhythm...normal P axis, V-rate 60- 99 Normal Electrocardiogram <Electronically signed by LEIDY MATA MD in OV> E-Sign Date: 02/08/21 E-Sign Time: 1017 Anesthesia Assessment and Plan Anesthesia History Personal History: No History of Anesthesia Complications Family History: No Family History of Anesthesia Complications Exercise Tolerance Exercise Tolerance: Metabolic Equivalents>4 Pertinent Negatives Pertinent Negatives: No Symptoms of GERD Cardiac & Pulmonary Exam Cardiac Exam: Normal S1/S2 Heart Sounds Pulmonary Exam: Clear Bilateral Breath Sounds Implantable Cardiac Device Does patient have a Pacemaker or an ICD?: No Airway Exam Known Difficult Airway: No Mallampati Class: 2 Mouth Opening: Normal (> 3cm) Thyromental Distance: Greater than 3 cm Neck Range of Motion: Full ROM Neck Circumference: Normal Teeth Condition: Normal Dentition ASA Classification ASA Score: ASA 2 Emergency Case?: No NPO Status NPO Status: NPO Clears >2 hours, Solids >8 hours Anesthesia Plan Resuscitation Status: Full Code Anesthesia Technique: General Anesthesia Airway Planned: Endotracheal Tube Monitors Used: Standard Monitors and SedLine
--- NOTE | 2025-03-30 07:33 | W.PM.OP ---
Operative Note Operative Note PRE-OP DIAGNOSIS: Right knee: 1. ACL graft failure 2. Prior lateral meniscus tear 3. Chondromalacia patella PROCEDURE: Right knee: 1. Revision ACL reconstruction, CPT #71262: Quadriceps allograft 2. Removal of hardware, CPT# 17161: Through open pretibial incision, removal of the pretibial cortical metallic button 3. Partial lateral meniscectomy, CPT #67949: Minuscule recurrent tearing fraying at the posterior horn SURGEON: Ed Florian TOOL GRINDER OPERATOR EXTERNAL: Morelia Sam ANESTHESIA TYPE: Local By Surgeon, General LMA/ETT and Primary Nerve Block Refer to Anesthesia Record ESTIMATED BLOOD LOSS: 10 TOURNIQUET TIME: 0 COMPLICATIONS: None Patient was transported to: PACU Patient's condition: stable Implants: Arthrex ACL TightRope II RT and ABS with larger 14 mm cortical button QuadLink pre-sutured quadriceps allograft: 10.5 x68 mm Indications: Please see complete medical record for details. Findings: Exam under anesthesia: Full range of motion, stable varus and valgus, grossly positive Imani and anterior drawer. Arthroscopic findings: Mild suprapatellar synovitis, stable undersurface moderate patellar chondromalacia, intact medial meniscus, tiny fraying posterior horn lateral meniscus tear, moderate thickening anterior capsule and anterior synovitis with some scarring adhesions to an anterior displaced tibial?remnant ACL graft. ACL graft well-healed in both the tibial and femoral sockets with good graft incorporation. Near?complete disruption of the graft on the mid to proximal substance with some proximal graft scarred to the PCL. Previous sockets intact and not widened. Procedure Description: In the operating room, general anesthesia was induced. The patient was positioned supine on the operating room table. All bony prominences were well-padded. Preoperative antibiotics were administered. The knee was prepped and draped in the usual sterile fashion. The correct patient, procedure, and side of the procedure were all verified prior to incision. Exam under anesthesia was performed. Local anesthetic containing epinephrine was infiltrated about the previous anteromedial, anterolateral, lateral distal femoral, and pretibial surgery sites. With the leg in extension, the previous pretibial incision was opened up, sharp dissection was carried down to the knot stack over the cortical button, soft tissue was cleared to the side, the knot removed with rongeur and knife, freeing up the button, which was then removed without difficulty in entirety. The cortex was intact and appropriate for revision use. The standard high and tight anterolateral and anteromedial portals were established and a complete diagnostic arthroscopy was performed with relevant findings detailed above. A passport cannula was inserted in both the anteromedial and anterolateral portals. There was some thickening of the anterior intercondylar area especially anteromedial anterolateral portals, with some anterior synovitis resected with a shaver. Very small fraying tearing at the posterior horn of the lateral meniscus was removed with a shaver quite readily. In the intercondylar area, the failed ACL graft was removed exposing the sockets on both tibial and femoral sides. The socket orifices were appropriately sized for revision use and exposed graft was removed with hand tools and brandon including permanent suture material. A new slightly larger allograft was measured and prepared on the back table. The TightRope II BTB and TightRope II ABS adjustable-loop cortical suspensory fixation implants were loaded on QuadLink pre-sutured quadriceps allograft. The femoral end measured solid 10 mm in the tibial and 10.5 mm. The graft was marked at 20 mm from each end. On the ABS side, the tensioning sutures were marked and a shuttle suture was added. The graft was manually tensioned and the construct did not demonstrate any elongation. The graft was then compressed in a graft tube and covered with vancomycin soaked sponges. The femoral guide was then placed through the anterolateral portal carefully targeting the appropriate anatomic ACL origin previous socket. The outer 9 mm diameter of the guide was positioned anatomically with appropriate space between the proximal and posterior articular margins. On the lateral thigh, drill guide position and angle adjusted to about 60 degree angle to the longitudinal axis of the femur in the coronal plane and 20 degree angle to the trans-epicondylar axis in the axial plane to create the most optimal femoral socket. Knife and snap were used to open the skin and IT band and placed the drill guide on bone while maintaining appropriate position on the lateral wall. The tunnel length was noted to be used for marking and passing the femoral button. The flip cutter was then drilled to the appropriate previous location. The drill guide malleted 7 mm into the cortex without interference from the retained femoral cortical button. The remainder of the targeting guide removed. The FlipCutter was deployed to 10 mm and retrograde reaming done to a depth of 30 mm. Retrograde drilling had to be done sequentially as parts of the incorporated graft and permanent suture material was welled up around the flip cutter, which was then carefully delivered back into the joint, this material removed with graspers and shaver, and additional progress made before more debris had to be removed until the socket had been recreated to appropriate size. The lateral femoral cortex remained intact. Slight bony debris was also removed with a shaver. The flip cutter was then closed, withdrawn, and a FiberStick used to pass a #2 FiberWire shuttle stitch, which was withdrawn out the anterolateral portal. The tibial guide was then used to target the anatomic ACL insertion through the anteromedial portal. The drill angle adjusted to 57.5 degrees and a pretibial incision made. The drill guide was placed on bone, tunnel length noted, and the flip cutter drilled to the appropriate previous location. The drill guide malleted 7 mm into the cortex. The remainder of the targeting guide removed. The FlipCutter was deployed to 10.5 mm. And retrograde reaming done to a depth of 35mm. Similar to the femoral side, the retrograde drilling had to be done carefully and sequentially with previous graft and permanent material removed to allow advancing. The flip cutter was then closed, withdrawn, and a FiberStick used to pass a #2 FiberWire shuttle stitch, which was withdrawn out the anteromedial portal. The mechanical shaver was used to remove bone debris as well as chamfer and remove soft tissue from the edges of the sockets. A femoral shuttle sutures were withdrawn out the anterior medial portal. The PassPort was removed. This portal dilated to accommodate the graft size. The graft was brought over to the knee and the femoral sutures shuttled out the lateral thigh and advanced until the button was near the far cortex. Under arthroscopic visualization with the knee slightly hyperflexed, and the button was then passed and flipped on the far cortex. Counter traction was then maintained on the tibial side of the graft while it was carefully advanced into the knee and then about 15 mm into the femoral socket. The tibial sutures were then shuttled through the tibial tunnel and passing stitch removed while carefully noting the tensioning stitches. The graft was then dunked about 15 mm into the tibial socket. 14 mm concave round chosen due to revision setting ABS button was then loaded to the ABS loop and tension sutures used to bring the cortical button down to bone. The graft was advanced nicely evenly into both sockets, and then provisionally tensioned on both the femoral and tibial sides. The knee was then cycled 22 times, tensioning rechecked, and final tightening done with the knee in full extension with a moderate reverse Imani maintained. The graft position and tension were appropriate. There was no impingement in full extension. Imani exam was very good and rockstable. Femoral passing sutures were removed. Backup knots were then tied on both sides and suture tails cut. The knee and all portals were copiously irrigated and then knee drained of arthroscopic fluid. 3-0 Monocryl was used to close the portals and small incisions in a buried interrupted fashion. Mastisol, Steri-Strips, Xeroform, 4 x 4 gauze, and sterile soft roll was applied. The extremity was wrapped gently with an Bob bandage. His previous soft knee immobilizer will be placed back in the day surgery area. The patient awoke from anesthesia without complication and was transferred to the recovery room in a stable condition. Date of Procedure: 03/30/25
[2025-03-30] MEDS: ceFAZolin 2 GM/50 ML BAG IVPB (08:03)
[2025-03-30] MEDS: TRANEXAMIC ACID/SOD. CHL. 1,000 MG/100 ML BAG 600 MG IVPB (08:09)
--- NOTE | 2025-03-30 08:32 | W.ANESNERVE ---
Nerve Block Single Injection Procedure Date and Time Date Performed: 03/30/25 Procedure Start: 07:42 Location Where Procedure Performed Procedure Location: Day Surgery Unit Reason Performed: Postoperative Analgesia Requesting Provider: Ed Florian Timeout Performed Timeout Performed: Yes Monitoring Used ECG, Blood Pressure, SpO2 and See EMR for corresponding vital signs Sterility Sterility: Hand Hygiene, Surgical Cap, Surgical Mask, Sterile Gloves, Eye Protection and Chlorhexidine Sedation Given During Procedure Sedation Given (Indicate Dose Given): Versed IV Dose:: 3mg IVP Patient Mental Status Patient Mental Status: Sedate with meaningful communication Nerve Block 1st Nerve Block: Laterality: Right Block Type: Adductor Canal Ultrasound Image Saved?: Yes Needle / Catheter Used: 100mm SonoPlex II Local Anesthetic Bolus (Indicate Dose Given): Lidocaine used for local infiltration of skin, Bupivacaine 0.5% Dose:: 10cc/0.5% (50mg) and Exparel Dose:: 10cc/1.33% (133mg) Additives (Indicate Dose Given): None Ultrasound: Sterile probe cover and gel used Nerve Stimulator: Supplement to Ultrasound use Paresthesia: None Procedure Tolerated: No Complications and Patient tolerated well Procedure Outcome: Successful Performed By: Torsten Hernández
[2025-03-30] MEDS: Vancomycin 1,000 MG VIAL 1000 MG (08:57)
[2025-03-30] MEDS: Bupivacaine 0.25% Pres-Free W/EPI 30 ML VIAL (08:58)
[2025-03-30] MEDS: EPINEPHrine 10 MG/10 ML ML (10:03)
[2025-03-30] MEDS: traMADol 50 MG TAB PO (11:33)
--- NOTE | 2025-03-30 12:30 | W.ANESPOSTOP ---
Postoperative Evaluation Date, Time and Location Date Performed: 03/30/25 Time Performed: 12:30 Patient Location: Day Surgery Unit Vital Signs Most Recent Imported Vital Signs: Most Recent Vital Signs Temp Pulse Resp BP Pulse Ox 36.2 C L 82 16 108/65 98 03/30/25 12:00 03/30/25 12:00 03/30/25 12:00 03/30/25 12:00 03/30/25 12:00 Pain Score Most Recent Pain Score: Most Recent Pain Score Pain Level 4 03/30/25 12:00 Assessment Mental Status: Awake (Alert & Oriented to Patient Baseline) Airway and Respiratory Function: Patent airway with normal (patient baseline) respiratory exam Cardiovascular Function: Hemodynamically Stable Hydration Status: Adequately Hydrated Nausea & Vomiting: No Nausea or Vomiting Pain: Pain is tolerable per patient Peripheral Nerve Block: Regional nerve block not resolved at time of post operative discharge
== END 2025-03-30 12:43 | disposition home or self-care (01) ==
PROVIDERS: PCP Nurse Practitioner Adult Health; Visit Provider Student in an Organized Health Care Education/Training Program
PROC: (CPT 29888; principal; 2025-03-30 07:30)
PROC: (CPT 29888; 2025-03-30 07:30)
DX: S83.511A Sprain of anterior cruciate ligament of right knee, initial encounter (principal); S83.281A Other tear of lateral meniscus, current injury, right knee, initial encounter; X58.XXXA Exposure to other specified factors, initial encounter; G89.18 Other acute postprocedural pain
CPT/HCPCS: 29888; 20680; 29881; 64447; J0131; J0665; J0666; J0690; J1100; J2003; J2250; J2371; J2405; J2704; J3010; J3373